=== PATIENT | male | born 1965 | race Caucasian/White ===

== ENCOUNTER 2024-04-10 19:15 | Inpatient (IN) | payer BC ==
--- NOTE | 2024-04-10 21:30 | ED ---
General Adult HPI - General Chief complaint: Alcohol Stated complaint: alcohol abuse Time Seen by Provider: 04/10/24 21:14 Source: patient Mode of arrival: ambulatory Limitations: no limitations - History of Present Illness Initial comments: Patient is a 58-year-old male past medical history of alcoholism presenting today for alcohol withdrawal. Patient states that he has been drinking steadily for last 20 years. Typically drinks a half a pint and 6 beers during the week and then during the weekend he is "unfiltered" and drinks what ever he wants. Patient states that today he drank a pint of "Surendra Beam" though sister states he is drinking 2 pints, last drink was at 630 this afternoon. Patient states that he is very anxious and feels like he needs to drink but is attempting not to because he has gotten to the point where he cannot live independently. Currently lives with his mother. States that he used to abuse heroin and cocaine 20 years ago when he lived in [place] but has not used those drugs since and denies any current illicit drug use. Does smoke approximately half a pack a day. States when he has tried to stop drinking in the past he has had severe hallucinations, denies history of withdrawal seizures. He currently denies nausea, vomiting, diaphoresis, chest pain, shortness of breath, abdominal pain, changes in vision, numbness, weakness, tactile disturbances or hallucinations. He states he ultimately wants to be admitted to the hospital to get sober and ultimately transition into [facility] for further recovery. Denies fevers. - Related Data Home Medications Medication Instructions Recorded Confirmed No Known Home Medications 04/11/24 04/11/24 Allergies Allergy/AdvReac Type Severity Reaction Status Date / Time No Known Allergies Allergy Verified 04/11/24 05:25 Review of Systems ROS Statement: Those systems with pertinent positive or pertinent negative responses have been documented in the HPI. ROS Other: All systems not noted in ROS Statement are negative. Past Medical History Past Medical History: No Reported History History of Any Multi-Drug Resistant Organisms: None Reported Past Surgical History: Adenoidectomy, Tonsillectomy Additional Past Surgical History / Comment(s): testicular surgery, tubes in ears, Past Psychological History: ADD/ADHD Smoking Status: Current every day smoker Past Alcohol Use History: Abuse, Daily, Heavy Past Drug Use History: Cocaine, Heroin - Past Family History Father Family Medical History: Cancer General Exam - General Exam Comments Initial Comments: PE: CONSTITUTIONAL: No apparent distress, well appearing, disheveled SKIN: Warm, dry, no jaundice, hives or petechiae EYES: Pupils are equally round, extraocular movements intact without nystagmus, clear conjunctiva, non-icteric sclera HENT: Normocephalic, atraumatic, mildly dry mucus membranes, oropharynx clear without exudates NECK: , Full range of motion, normal appearance PULMONARY: Clear to auscultation without wheezes, rhonchi, or rales, normal excursion, no accessory muscle use and no stridor CARDIOVASCULAR: Regular rate, rhythm, normal S1 and S2. No appreciated murmurs, rubs or gallops. Strong radial pulses with intact distal perfusion. No lower extremity edema GASTROINTESTINAL: Soft, active bowel sounds throughout, non-tender, non- distended, no palpable masses, no rebound or guarding. No hepatosplenomegaly MUSCULOSKELETAL: Extremities have no gross deformity, no edema, redness, or swelling. No calf swelling NEUROLOGIC:_a/o x 3, GCS 15, normal mentation and speech. Moves all extremities x 4 without motor or sensory deficit PSYCHIATRIC:_anxious, angry mood and affect, thought process is clear and linear , though at times tangential, particularly loquacious Limitations: no limitations Course Vital Signs 04/10/24 04/10/24 04/11/24 19:58 23:39 01:56 Temperature 98.4 F Pulse Rate 119 H 91 100 Respiratory 20 20 18 Rate Blood Pressure 142/72 112/76 118/74 O2 Sat by Pulse 95 94 L 95 Oximetry 04/11/24 04/11/24 04/11/24 04:37 06:10 07:07 Temperature Pulse Rate 83 77 78 Respiratory 16 13 13 Rate Blood Pressure 115/70 102/51 120/76 O2 Sat by Pulse 96 94 L 93 L Oximetry 04/11/24 07:08 Temperature Pulse Rate 86 Respiratory 6 L Rate Blood Pressure 120/76 O2 Sat by Pulse 94 L Oximetry Medical Decision Making - Medical Decision Making Was pt. sent in by a medical professional or institution (, PA, BAG SEWER, urgent care, hospital, or detention...) When possible be specific @ -No Did you speak to anyone other than the patient for history (EMS, parent, family, police, friend...)? What history was obtained from this source @ -No Did you review nursing and triage notes (agree or disagree)? Why? @ -I reviewed and agree with nursing and triage notes Were old charts reviewed (outside hosp., previous admission, EMS record, old EKG, old radiological studies, urgent care reports/EKG's, detention records)? Report findings @ -Medical records reviewed, no prior charts to review Differential Diagnosis (chest pain, altered mental status, abdominal pain women, abdominal pain men, vaginal bleeding, weakness, fever, dyspnea, syncope, headache, dizziness, GI bleed, back pain, seizure, CVA, palpatations, mental health, musculoskeletal)? @Differential diagnosis was broad over top considerations include alcohol intoxication, alcohol withdrawal, anxiety, depression, wernicke's encephalopthy, malnutrition, this is not all inclusive list EKG interpreted by me (3pts min.). @ -As above X-rays interpreted by me (1pt min.). @ -None done CT interpreted by me (1pt min.). @ -None done U/S interpreted by me (1pt. min.). @ -None done What testing was considered but not performed or refused? (CT, X-rays, U/S, labs)? Why? @ -None What meds were considered but not given or refused? Why? @ -None Did you discuss the management of the patient with other professionals (professionals i.e. , PA, BAG SEWER, lab, RT, psych nurse, health and social care teacher, artillery officer, teacher, chief marketing officer, family caseworker)? Give summary @ -No Was smoking cessation discussed for >3mins.? @ -No Was critical care preformed (if so, how long)? @ -No Were there social determinants of health that impacted care today? How? (Homelessness, low income, unemployed, alcoholism, drug addiction, transportation, low edu. Level, literacy, decrease access to med. care, fpc, rehab)? @ -No Was there de-escalation of care discussed even if they declined (Discuss DNR or withdrawal of care, Hospice)? @ -No What co-morbidities impacted this encounter? (DM, HTN, Smoking, COPD, CAD, Cancer, CVA, ARF, Chemo, Hep., AIDS, mental health diagnosis, sleep apnea, morbid obesity)? Alcoholism Was patient admitted / discharged? Hospital course, mention meds given and route, prescriptions, significant lab abnormalities, going to OR and other pertinent info. @Admission- Patient is a 58 y/o male with past medical history alcoholism presenting for concerns of alcohol withdrawal and wanting to stop drinking. Initially seen and assessed in the waiting room, he is anxious and has an angry affect, accompanied by his sister and his mother. He is not responding to any internal stimuli, denies hallucinations, has no seizure activity, has slight tremor with out stretched hands and mild tongue fasciculations, no diaphoresis, skin is warm and dry, tachycardia noted, skin is pink and well-perfused, abdomen soft and nontender, remainder of exam is unremarkable. He does feel strongly of alcohol. Suspect patient is still somewhat intoxicated he is a daily heavy drinker and I suspect he may be starting to go to alcohol withdrawal given his anxiety, tachycardia and fasciculations I will give him 5 mg of oral Ativan. Ordered basic labs, thiamine, folate, multivitamin IV fluids. Patient is unlikely to remain sober if discharged home and is requesting admission for alcohol withdrawal so that he can ultimately get to [facility] and remain sober. Anticipate admission. Labsreviewed. Grossly within normal limits. Blood alcohol 365, AST/ALT mildly elevated, consistent with patient's chronic alcohol abuse. otherwise abnormal values not concerning for acute pathology related to presenting complaint. I will hold off on further administration at this point as patient is sleeping comfortably at this time and does have a fairly elevated blood alcohol. Plan for admission for alcohol intoxication and anticipated alcohol withdrawal. [facility] protocol orders placed. Patient accepted for admission by Dr. Hernandez, [place]. Undiagnosed new problem with uncertain prognosis? @ -No Drug Therapy requiring intensive monitoring for toxicity (Heparin, Nitro, Insuli n, Cardizem)? @ -No Were any procedures done? @ -No Diagnosis/symptom? @Alcohol intoxication, alcohol withdrawal Acute, or Chronic, or Acute on Chronic? @Acute Uncomplicated (without systemic symptoms) or Complicated (systemic symptoms)? @Complicated Side effects of treatment? @ -No Exacerbation, Progression, or Severe Exacerbation? @ -No Poses a threat to life or bodily function? How? (Chest pain, [place], [place], pneumonia, PE, COPD, DKA, ARF, appy, cholecystitis, CVA, Diverticulitis, Homicidal, Suici lindsay, threat to staff... and all critical care pts) @Yes, if left untreated, alcohol withdrawal could lead to delirium tremens which are life-threatening - Lab Data Result diagrams: 04/16/24 03:07 04/16/24 03:07 Lab Results 04/10/24 04/10/24 04/10/24 Range/Units 22:00 22:00 22:00 WBC 6.9 (3.8-10.6) k/uL RBC 4.76 (4.30-5.90) m/uL Hgb 16.9 (13.0-17.5) gm/dL Hct 50.7 (39.0-53.0) % MCV 106.5 H (80.0-100.0) fL MCH 35.6 H (25.0-35.0) pg MCHC 33.4 (31.0-37.0) g/dL RDW 13.1 (11.5-15.5) % Plt Count 382 (150-450) k/uL MPV 6.4 Neutrophils % 52 % Lymphocytes % 37 % Monocytes % 7 % Eosinophils % 1 % Basophils % 1 % Neutrophils # 3.6 (1.3-7.7) k/uL Lymphocytes # 2.5 (1.0-4.8) k/uL Monocytes # 0.5 (0-1.0) k/uL Eosinophils # 0.1 (0-0.7) k/uL Basophils # 0.0 (0-0.2) k/uL Macrocytosis Moderate PT 11.4 (10.0-12.5) sec INR 1.1 (<1.2) Sodium (137-145) mmol/L Potassium (3.5-5.1) mmol/L Chloride (98-107) mmol/L Carbon Dioxide (22-30) mmol/L Anion Gap mmol/L BUN (9-20) mg/dL Creatinine (0.66-1.25) mg/dL Est GFR (CKD-EPI)AfAm (>60 ml/min/1.73 sqM) Est GFR (CKD-EPI)NonAf (>60 ml/min/1.73 sqM) Glucose (74-99) mg/dL Calcium (8.4-10.2) mg/dL Phosphorus (2.5-4.5) mg/dL Magnesium (1.6-2.3) mg/dL Total Bilirubin (0.2-1.3) mg/dL AST (17-59) U/L ALT (4-49) U/L Alkaline Phosphatase (38-126) U/L Total Protein (6.3-8.2) g/dL Albumin (3.5-5.0) g/dL Lipase (23-300) U/L Urine Opiates Screen Not Detected (NotDetected) Ur Oxycodone Screen Not Detected (NotDetected) Urine Methadone Screen Not Detected (NotDetected) Ur Barbiturates Screen Not Detected (NotDetected) U Tricyclic Antidepress Not Detected (NotDetected) Ur Phencyclidine Scrn Not Detected (NotDetected) Ur Amphetamines Screen Not Detected (NotDetected) U Methamphetamines Scrn Not Detected (NotDetected) U Benzodiazepines Scrn Not Detected (NotDetected) Urine Cocaine Screen Not Detected (NotDetected) U Marijuana (THC) Screen Not Detected (NotDetected) Serum Alcohol mg/dL 04/10/24 Range/Units 22:00 WBC (3.8-10.6) k/uL RBC (4.30-5.90) m/uL Hgb (13.0-17.5) gm/dL Hct (39.0-53.0) % MCV (80.0-100.0) fL MCH (25.0-35.0) pg MCHC (31.0-37.0) g/dL RDW (11.5-15.5) % Plt Count (150-450) k/uL MPV Neutrophils % % Lymphocytes % % Monocytes % % Eosinophils % % Basophils % % Neutrophils # (1.3-7.7) k/uL Lymphocytes # (1.0-4.8) k/uL Monocytes # (0-1.0) k/uL Eosinophils # (0-0.7) k/uL Basophils # (0-0.2) k/uL Macrocytosis PT (10.0-12.5) sec INR (<1.2) Sodium 143 (137-145) mmol/L Potassium 4.3 (3.5-5.1) mmol/L Chloride 107 (98-107) mmol/L Carbon Dioxide 26 (22-30) mmol/L Anion Gap 10 mmol/L BUN 21 H (9-20) mg/dL Creatinine 0.66 (0.66-1.25) mg/dL Est GFR (CKD-EPI)AfAm >90 (>60 ml/min/1.73 sqM) Est GFR (CKD-EPI)NonAf >90 (>60 ml/min/1.73 sqM) Glucose 75 (74-99) mg/dL Calcium 9.1 (8.4-10.2) mg/dL Phosphorus 4.1 (2.5-4.5) mg/dL Magnesium 2.0 (1.6-2.3) mg/dL Total Bilirubin 0.8 (0.2-1.3) mg/dL AST 79 H (17-59) U/L ALT 60 H (4-49) U/L Alkaline Phosphatase 67 (38-126) U/L Total Protein 7.2 (6.3-8.2) g/dL Albumin 4.9 (3.5-5.0) g/dL Lipase 267 (23-300) U/L Urine Opiates Screen (NotDetected) Ur Oxycodone Screen (NotDetected) Urine Methadone Screen (NotDetected) Ur Barbiturates Screen (NotDetected) U Tricyclic Antidepress (NotDetected) Ur Phencyclidine Scrn (NotDetected) Ur Amphetamines Screen (NotDetected) U Methamphetamines Scrn (NotDetected) U Benzodiazepines Scrn (NotDetected) Urine Cocaine Screen (NotDetected) U Marijuana (THC) Screen (NotDetected) Serum Alcohol 365 H* mg/dL Disposition Clinical Impression: Alcoholic intoxication, Alcohol withdrawal syndrome Disposition: ADMITTED IP TO THIS HOSP Condition: Good
[2024-04-10] MEDS: THIAMINE 100 MG/ML 2 ML VIAL IM STA (22:00)
[2024-04-10] MEDS: MULTIVITAMINS, THERA 1 EACH TAB PO STA (22:01)
[2024-04-10] MEDS: diazePAM 5 MG TAB PO STA (22:01)
[2024-04-10] MEDS: SODIUM CHLORIDE 0.9% 1,000 ML IV STA (22:02)
[2024-04-10 22:25] LABS: Basophils % (A) 1 %; Eosinophils # (A) 0.1 k/uL (0-0.7); Eosinophils % (A) 1 %; HCT 50.7 % (39.0-53.0); HGB 16.9 gm/dL (13.0-17.5); Lymphocytes # (A) 2.5 k/uL (1.0-4.8); Lymphocytes % (A) 37 %; MCH 35.6 pg (25.0-35.0); MCHC 33.4 g/dL (31.0-37.0); MCV 106.5 fL (80.0-100.0); Macrocytosis Moderate; Mean Platelet Volume 6.4; Monocytes # (A) 0.5 k/uL (0-1.0); Monocytes % (A) 7 %; Neutrophils # (A) 3.6 k/uL (1.3-7.7); Neutrophils % (A) 52 %; Platelet Count 382 k/uL (150-450); RBC 4.76 m/uL (4.30-5.90); RDW 13.1 % (11.5-15.5); WBC 6.9 k/uL (3.8-10.6)
[2024-04-10] MEDS: FOLIC ACID 1 MG TAB PO STA (22:25)
[2024-04-10 22:31] LABS: INR 1.1 (<1.2); Prothrombin Time 11.4 sec (10.0-12.5)
[2024-04-10 22:39] LABS: ALT 60 U/L (4-49); AST 79 U/L (17-59); African American GFR (CKD) >90 (>60 ml/min/1.73 sqM); Albumin 4.9 g/dL (3.5-5.0); Alkaline Phosphatase 67 U/L (38-126); Anion Gap 10 mmol/L; Blood Urea Nitrogen 21 mg/dL (9-20); Calcium 9.1 mg/dL (8.4-10.2); Carbon Dioxide 26 mmol/L (22-30); Chloride 107 mmol/L (98-107); Glucose 75 mg/dL (74-99); Lipase 267 U/L (23-300); Non-African American GFR(CKD) >90 (>60 ml/min/1.73 sqM); Phosphorus 4.1 mg/dL (2.5-4.5); Potassium 4.3 mmol/L (3.5-5.1); Sodium 143 mmol/L (137-145); Total Bilirubin 0.8 mg/dL (0.2-1.3); Total Protein 7.2 g/dL (6.3-8.2)
[2024-04-10 22:45] LABS: Amphetamine Screen,Urine Not Detected (NotDetected); Barbiturate Screen,Urine Not Detected (NotDetected); Benzodiazepines Screen,Urine Not Detected (NotDetected); Cocaine Screen,Urine Not Detected (NotDetected); Methadone Screen, Urine Not Detected (NotDetected); Opiate Screen,Urine Not Detected (NotDetected); Oxycodone Screen, Urine Not Detected (NotDetected); Phencyclidine Screen,Urine Not Detected (NotDetected); Tricyclic Antidepressant,Urine Not Detected (NotDetected); Urn Cannabinoid Scrn Not Detected (NotDetected)
[2024-04-10 23:27] LABS: Alcohol 365 mg/dL
[2024-04-10] MEDS ORDERED: MAG HYDROX/AL HYDROX/SIMETH 30 ML CUP PO PRN (23:30)
[2024-04-10] MEDS ORDERED: NALOXONE 0.4 MG/ML 1 ML VIAL IV PRN (23:30)
[2024-04-10] MEDS ORDERED: CALCIUM CARBONATE 500 MG CHEWABLE PO PRN (23:30)
[2024-04-10] MEDS ORDERED: LORazepam 0.5 MG TAB PO PRN (23:32)
[2024-04-10] MEDS ORDERED: LORazepam 1 MG TAB PO PRN ×2 (23:32)
[2024-04-11] MEDS: DEXTROSE 5%-0.45% NACL 1,000 ML IV SCH (00:01)
[2024-04-11] MEDS: ONDANSETRON 4 MG/2 ML VIAL IVP PRN (00:44)
[2024-04-11 03:10] LABS: Glucose,Whole Blood 119 mg/dL (70-110)
[2024-04-11] MEDS: ENOXAPARIN 40 MG/0.4 ML SYRINGE SQ SCH (09:16)
[2024-04-11] MEDS: FAMOTIDINE 20 MG TAB PO SCH (09:16)
[2024-04-11] MEDS: FOLIC ACID 1 MG TAB PO SCH (09:16)
[2024-04-11] MEDS: MULTIVITAMINS, THERA 1 EACH TAB PO SCH (09:16)
[2024-04-11] MEDS: THIAMINE 100 MG TAB PO SCH (09:16)
[2024-04-11] MEDS: ACETAMINOPHEN TAB 325 MG TAB PO PRN (09:19)
[2024-04-11] MEDS: LORazepam 1 MG TAB PO PRN (09:19)
[2024-04-11] MEDS: traZODone HCL 50 MG TAB PO STA (22:34)
--- NOTE | 2024-04-11 22:47 | P.HPIM ---
History of Present Illness H&P Date: 04/11/24 Chief Complaint: Alcohol intoxication Patient is a 58-year-old male with known history of nicotine addiction, alcohol abuse presents to ER for alcohol withdrawal symptoms. Patient states that his last drink was yesterday afternoon. Usually drinks about half a pint and 6 be ers during the week and then during the weekend is on filtered and drinks what ever he wants. Patient states that he is very anxious and feels like he needs to drink but he is wanted detox and live independently. Currently lives with his mother. Patient does have a history of heroin and cocaine use 20 years ago. Patient currently does smoke on a daily basis. Patient wants to stop drinking and detox and is willing to go to rehab program. Otherwise denied any nausea or vomiting. No chest pain or shortness of breath. No complaints abdominal pain or diarrhea. Denied any fever or chills. No recent illnesses. Denied any hallucinations.Laboratory data showed WBC 6.9 hemoglobin 16.9 and platelets 383 MCV 106.5 Sodium 143 potassium 4.3 chloride 107 bicarb is 26 BUN 21 and creatinine 0.66 and blood sugar 75. AST 79 ALT 16 alk phos 67 and serum alcohol level 365. Review of Systems Constitutional: Patient denies any fever or chills . Generalized weakness and shakiness. Abdomen: Patient denied nausea vomiting and diarrhea and abdominal pain. Cardiovascular: Patient denies any chest pain or short of breath no palpitations. Respiratory: patient denied any cough or sputum production. No shortness of breath Neurologic: Patient denied any numbness or tingling. no headache. Musculoskeletal: Patient denies any complaints of joint swelling or deformity. Skin: Negative Psychiatric: Negative Endocrine: No heat or cold intolerance. No recent weight gain. Genitourinary: No dysuria or hematuria. All other 14 point ROS negative except the above Past Medical History Past Medical History: No Reported History History of Any Multi-Drug Resistant Organisms: None Reported Past Surgical History: Adenoidectomy, Tonsillectomy Additional Past Surgical History / Comment(s): testicular surgery, tubes in ears Past Anesthesia/Blood Transfusion Reactions: No Reported Reaction Smoking Status: Current every day smoker - Past Family History Father Family Medical History: Cancer Medications and Allergies Home Medications Medication Instructions Recorded Confirmed Type No Known Home Medications 04/11/24 04/11/24 History Allergies Allergy/AdvReac Type Severity Reaction Status Date / Time No Known Allergies Allergy Verified 04/11/24 05:25 Physical Exam Vitals: Vital Signs Temp Pulse Pulse Resp BP BP Pulse Ox 04/11/24 07:39 98.4 F 77 20 147/69 96 04/11/24 07:07 78 13 120/76 93 L 04/11/24 06:10 77 13 102/51 94 L 04/11/24 04:37 83 16 115/70 96 04/11/24 01:56 100 18 118/74 95 04/10/24 23:39 91 20 112/76 94 L 04/10/24 19:58 98.4 F 119 H 20 142/72 95 Intake and Output 04/10/24 04/11/24 04/11/24 22:59 06:59 14:59 Other: Weight 65.771 kg 65.771 kg PHYSICAL EXAMINATION: Patient is lying in the bed, no acute distress, awake alert and oriented. Anxious and shaky. HEENT: Normocephalic. Neck is supple. Pupils reactive. Nostrils clear. Oral cavity is moist. Neck reveals no JVD, carotid bruits, or thyromegaly. CHEST EXAMINATION: Trachea is central. Symmetrical expansion. Lung medina clear to auscultation and percussion. CARDIAC: Normal S1, S2 with no gallops. No murmurs ABDOMEN: Soft. Bowel sounds normal. No organomegaly. No abdominal bruits. Extremities: reveal no edema. No clubbing or cyanosis Neurologically awake, alert, oriented x3 with well-coordinated movements. No fo vianey deficits noted Skin: No rash or skin lesions. Psychiatric: Coperative. Nonsuicidal, anxious. Musculoskeletal: No joint swelling or deformity. Normal range of motion. Results CBC & Chem 7: 04/10/24 22:00 04/10/24 22:00 Labs: Abnormal Lab Results - Last 24 Hours (Table) 04/10/24 04/10/24 04/11/24 Range/Units 22:00 22:00 03:08 MCV 106.5 H (80.0-100.0) fL MCH 35.6 H (25.0-35.0) pg BUN 21 H (9-20) mg/dL POC Glucose (mg/dL) 119 H (70-110) mg/dL AST 79 H (17-59) U/L ALT 60 H (4-49) U/L Serum Alcohol 365 H* mg/dL Thrombosis Risk Factor Assmnt - DVT/VTE Prophylaxis DVT/VTE Prophylaxis: Pharmacologic Prophylaxis ordered Assessment and Plan Assessment: Acute alcohol intoxication with level 365 on admission. Acute alcohol withdrawal symptoms Alcoholic hepatitis Macrocytosis secondary to alcohol abuse Alcohol use disorder GI and DVT prophylaxis. Patient will be continued on IV hydration with D5 half-normal saline. Continue with Ativan as per withdrawal protocol. Continue with GI and DVT prophylaxis with Pepcid and Lovenox subcu. Continue with multivitamins and thiamine. Follow-up closely. Seizure precautions and fall precautions. Time with Patient: Greater than 30
[2024-04-12] MEDS: LORazepam 1 MG TAB PO PRN (05:37)
[2024-04-12 09:07] LABS: BUN/Creat Ratio 25.67 Ratio (12.00-20.00); Blood Urea Nitrogen 15.4 mg/dL (9.0-27.0); Calcium 8.9 mg/dL (8.7-10.3); Carbon Dioxide 22.8 mmol/L (21.6-31.8); Chloride 102 mmol/L (96-109); Glucose 94 mg/dL (70-110); Sodium 137 mmol/L (135-145)
[2024-04-12] MEDS: LORazepam 2 MG/ML INJ IV PRN ×2 (14:18→17:56)
[2024-04-12] MEDS ORDERED: LORazepam 0.5 MG TAB PO PRN (16:20)
[2024-04-12] MEDS ORDERED: LORazepam 1 MG TAB PO PRN ×3 (16:20)
--- NOTE | 2024-04-12 17:11 | P.CNPUL ---
History of Present Illness Consult date: 04/12/24 Requesting physician: Sophie Rivas Reason for consult: other (ICU management) Chief complaint: Alcoholism History of present illness: This is a 58-year-old male patient with a history of ADHD, chronic and ongoing tobacco dependence, history of cocaine and heroin use in the past, heavy daily alcohol abuse who presented here on April 10, 2024 after drinking a pint of Surendra Mcclendon prior to his arrival. He typically drinks half a pint and 6 beers during the week then goes "unfiltered and drinks what ever he wants on the weekends. He lives with his mother. In the ER he stated like he felt he needed a drink but was trying not to to get where the point where he could live independently. Denies any recent drug use. His alcohol level on arrival was 365. He was placed in the CIWA protocol and admitted to the fifth floor. We are consulted today for possible ICU admission. His CIWA scale is up to 23. He was having shaking and restlessness trying to leave the floor, hallucinations. He had been given Ativan per protocol and Valium 5 mg IVP once prior to arrival. He is currently sitting up in bed. His mother is at the bedside. He is restless. He is cooperative currently. He is shaky. He is maintaining O2 saturations in the 90s on room air. He is hemodynamically stable. White count 6.9. Hemoglobin 16.9. Platelets 382. INR 1.1. Sodium 137. Potassium 4.0. Bicarb 23. BUN 15. Creatinine 0.6. Glucose 94. Urine drug screen was negative. AST 79. ALT 60. Lipase 267. He is on Lovenox for DVT prophylaxis. D5W with half-normal saline at 70 mL/h. Review of Systems REVIEW OF SYSTEMS: CONSTITUTIONAL: Positive for signs of alcohol withdrawal. Denies any recent significant weight loss or weight gain. EYES: Denies change in vision. EARS, NOSE, MOUTH, THROAT: Denies headaches, denies sore throat. CARDIOVASCULAR: Denies chest pain, palpitations or syncopal episodes. RESPIRATORY: Denies shortness of breath, cough, congestion or hemoptysis. GASTROINTESTINAL: Denies change in appetite, denies abdominal pain GENITOURINARY: Denies hematuria, denies infections. MUSKULOSKELETAL: Denies pain, denies swelling. INTEGUMENTARY: Denies rash, denies eczema. NEUROLOGICAL: Denies recent memory loss, no recent seizure activity. PSYCHIATRIC: Denies anxiety, denies depression. HEMATOLOGIC/LYMPHATIC: Denies anemia, denies enlarged lymph nodes. Past Medical History Past Medical History: No Reported History History of Any Multi-Drug Resistant Organisms: None Reported Past Surgical History: Adenoidectomy, Tonsillectomy Additional Past Surgical History / Comment(s): testicular surgery, tubes in ears Past Anesthesia/Blood Transfusion Reactions: No Reported Reaction Smoking Status: Current every day smoker - Past Family History Father Family Medical History: Cancer Medications and Allergies Home Medications Medication Instructions Recorded Confirmed Type No Known Home Medications 04/11/24 04/11/24 History Allergies Allergy/AdvReac Type Severity Reaction Status Date / Time No Known Allergies Allergy Verified 04/11/24 05:25 Physical Exam Vitals: Vital Signs Temp Pulse Resp BP Pulse Ox 04/12/24 13:15 98.2 F 98 16 112/84 95 04/12/24 07:05 97.7 F 63 18 132/67 97 04/12/24 01:39 97.3 F L 60 16 131/67 96 04/11/24 20:00 97.3 F L 67 16 144/66 97 Intake and Output 04/12/24 04/12/24 04/12/24 06:59 14:59 22:59 Intake Total 590 Balance 590 Intake: Oral 590 Other: # Voids 3 GENERAL EXAM: Alert, thin, anxious, shaky 58-year-old male, on room air. HEAD: Normocephalic. EYES: Normal reaction of pupils, equal size. NOSE: Clear with pink turbinates. THROAT: No erythema or exudates. NECK: No masses, no JVD. CHEST: No chest wall deformity. LUNGS: Equal air entry with no crackles, wheeze, rhonchi or dullness. CVS: S1 and S2 normal with no audible murmur, regular rhythm. ABDOMEN: No hepatosplenomegaly, normal bowel sounds, no guarding or rigidity. SPINE: No scoliosis or deformity SKIN: No rashes CENTRAL NERVOUS SYSTEM: No focal deficits, tone is normal in all 4 extremities. EXTREMITIES: There is no peripheral edema. No clubbing, no cyanosis. Peripheral pulses are intact. Results - Laboratory Findings CBC and BMP: 04/10/24 22:00 04/12/24 04:04 PT/INR, D-dimer PT 11.4 sec (10.0-12.5) 04/10/24 22:00 INR 1.1 (<1.2) 04/10/24 22:00 Abnormal lab findings: Abnormal Labs 04/10/24 04/10/24 04/11/24 22:00 22:00 03:08 MCV 106.5 H MCH 35.6 H Anion Gap BUN 21 H BUN/Creatinine Ratio POC Glucose (mg/dL) 119 H AST 79 H ALT 60 H Serum Alcohol 365 H* 04/12/24 04:04 MCV MCH Anion Gap 12.20 H BUN BUN/Creatinine Ratio 25.67 H POC Glucose (mg/dL) AST ALT Serum Alcohol Assessment and Plan Assessment: Acute alcohol intoxication on arrival 04/10/2024 with withdrawal delirium today 04/12/2024 History of alcoholism drinking approximately half a pint of liquor and 6 beers a day during the week and then goes 'unfiltered' drinking what ever he wants on the weekends Previous history of cocaine and heroin abuse Chronic and ongoing tobacco dependence of 40 years Plan: The patient was seen and evaluated Labs and medications reviewed Transfer the patient to the intensive care unit Initiate Precedex if needed Continue CIWA protocol with IV Ativan We will continue to follow and make further recommendations based on his clinical status I have personally seen and examined the patient, performed the documentation and the assessment and plan as written. Number of minutes spent on the visit: 20 Dictation was produced using [employer] dictation software. Please excuse any grammatical, word or spelling errors.
[2024-04-12] MEDS ORDERED: chlordiazePOXIDE 25 MG CAP PO SCH (18:00)
--- NOTE | 2024-04-12 18:32 | P.PN ---
Subjective Progress Note Date: 04/12/24 Patient is a 58-year-old male with known history of nicotine addiction, alcohol abuse presents to ER for alcohol withdrawal symptoms. Patient states that his last drink was yesterday afternoon. Usually drinks about half a pint and 6 beers during the week and then during the weekend is on filtered and drinks what ever he wants. Patient states that he is very anxious and feels like he needs to drink but he is wanted detox and live independently. Currently lives with his mother. Patient does have a history of heroin and cocaine use 20 years ago. Patient currently does smoke on a daily basis. Patient wants to stop drinking and detox and is willing to go to rehab program. Otherwise denied any nausea or vomiting. No chest pain or shortness of breath. No complaints abdominal pain or diarrhea. Denied any fever or chills. No recent illnesses. Denied any hallucinations.Laboratory data showed WBC 6.9 hemoglobin 16.9 and platelets 383 MCV 106.5 Sodium 143 potassium 4.3 chloride 107 bicarb is 26 BUN 21 and creatinine 0.66 and blood sugar 75. AST 79 ALT 16 alk phos 67 and serum alcohol level 365. 04/12/2024 Patient is seen in follow-up today continuing to have significant withdrawals and reports is seeing the TV on the floor although he knows it is up on the wall and also noticing that furniture is hanging up on the wall and having hallucinations. Patient's CIWA has been elevated and will also start Librium. Patient reports last drink was Thursday into Thursday and normally drinks 1 to 2 pints of liquor daily. Patient is agreeable and wants to go to rehab. Monitor closely with CIWA protocol and will adjust medications. Also have added Valium. Review of systems: Constitutional: No reports of fatigue, fever, or chills, reports hallucinating and seeing things that he knows are not present Cardiovascular: No reports of chest pain or palpitations Respiratory: No reports of shortness of breath or cough GI: reports of intermittent nausea, no vomiting, or diarrhea, eating a little more today : No reports of dysuria or retention Neurovascular: No reports of weakness or numbness All medications have been reviewed PHYSICAL EXAMINATION: Patient is sitting up in the chair, mildly anxious, restless, shaky, awake alert and oriented. Thin built, appears older than stated age HEENT: Normocephalic. Neck is supple. Pupils reactive. Nostrils clear. Oral cavity is moist. Neck reveals no JVD, carotid bruits, or thyromegaly. CHEST EXAMINATION: Trachea is central. Symmetrical expansion. Lung medina clear to auscultation and percussion. CARDIAC: Normal S1, S2 with no gallops. No murmurs, tachy ABDOMEN: Soft. Thin, bowel sounds normal. No organomegaly. No abdominal bruits. Extremities: reveal no edema. No clubbing or cyanosis Neurologically awake, alert, oriented x3 with well-coordinated movements. No focal deficits noted Skin: No rash or skin lesions. Psychiatric: Cooperative. Non-suicidal, extremely anxious. Musculoskeletal: No joint swelling or deformity. Normal range of motion. Assessment: Acute alcohol intoxication with level 365 on admission. Acute alcohol withdrawal symptoms including hallucinations, shakiness, restlessness, increased anxiety Alcoholic hepatitis secondary to continued ongoing alcohol abuse Macrocytosis secondary to alcohol abuse Alcohol use disorder Vaping GI prophylaxis DVT prophylaxis Full code Plan: Patient will be continued on IV hydration although is eating and drinking will follow-up with repeat labs and monitor closely. Patient CIWA scores are elevated and was continued on oral Ativan and received 2 mg today and is reporting some hallucinations along with continued anxiety and shakiness. Will add Valium and also started Librium taper. Consulted jersey knitter with concerns of possible delirium tremens and may need closer ICU monitoring with elevated CIWA scores Patient provided information for resources to inpatient rehab as patient is agreeable and wants to go to rehab Follow-up on repeat labs and continue to monitor closely Overall prognosis is guarded at this time The impression and plan of care has been dictated by Trina Means, Nurse Practitioner as directed. Dr. Richar MD I have performed a history and examination and MDM of this patient, discussed the same with the dictator, and agree with the dictator's assessment and plan as written ,documented as a scribe. Based on total visit time, I have performed more than 50% of the visit. Objective - Vital Signs Vital signs: Vital Signs Temp 97.7 F 04/12/24 07:05 Pulse 63 04/12/24 07:05 Resp 18 04/12/24 07:05 BP 132/67 04/12/24 07:05 Pulse Ox 97 04/12/24 07:05 FiO2 Intake & Output 04/11/24 04/12/24 04/12/24 18:59 06:59 18:59 Intake Total 840 590 Balance 840 590 Weight 65.771 kg Intake: Intake, IV Titration 840 Amount Dextrose 5%-0.45% NaCl 1, 840 000 ml @ 70 mls/hr IV . [id number] Rx#:[id number] Oral 590 Other: Voiding Method Toilet # Voids 2 3 - Labs CBC & Chem 7: 04/10/24 22:00 04/12/24 04:04 Labs: Abnormal Lab Results - Last 24 Hours (Table) 04/12/24 Range/Units 04:04 Anion Gap 12.20 H (4.00-12.00) mmol/L BUN/Creatinine Ratio 25.67 H (12.00-20.00) Ratio
[2024-04-12] MEDS: DEXMEDETOMIDINE/0.9% NACL(PMX) 400 MCG in EMPTY BAG 1 BAG IV SCH (18:56)
--- NOTE | 2024-04-12 20:27 | P.MHFACE ---
Face to Face Restrain/Seclus - Evaluation Patient's Immediate Situation: Endangers self safety, Endangers staff safety Patient's Reaction to the Intervention: Hostile Patient's Medical & Behavioral Condition: Awake, Agitated Patient's Medical & Behavioral Condition - Comment: The patient was seen at the bedside for evaluation of 4-point restraints. The patient who is admitted for alcohol withdrawal had reportedly gradually worsened despite being on precedex infusion and ativan IVP. The CIWA at the time of evaluation was 50 and the patient was very agitated, and attempting to bite and swing at staff and rip out his IVs. Need to Continue or Terminate Restraint or Seclusion: Continue Need to Continue or Terminate Restraint/Seclusion - Comment: Continue restraits for now with plans to discontinue as soon as the patient's CIWA comes down with sedation. Face to Face Eval of Restraint Date: 04/12/24 Face to Face Eval of Restraint Time: 20:05
[2024-04-12] MEDS: MIDAZOLAM HCL 50 MG in SODIUM CHLORIDE 0.9% 40 ML IV SCH (20:47)
--- NOTE | 2024-04-12 20:48 | XR ---
EXAMINATION TYPE: XR chest 1V portable DATE OF EXAM: 04/12/2024 8:37 PM CLINICAL INDICATION:Male, 58 years old with history of Tube placement; [facility] COMPARISON: None TECHNIQUE: XR chest portable Frontal view of the chest. FINDINGS: Lungs/Pleura: There is no evidence of pleural effusion, focal consolidation, or pneumothorax. Pulmonary vascularity: Unremarkable. Heart/mediastinum: Cardiomediastinal silhouette is unremarkable. Musculoskeletal: No acute osseous pathology. Other findings: None Lines/Tubes: Endotracheal tube with distal tip approximately 5.5 cm above the geeta. Nasogastric tube with its distal tip and side-port projecting under the diaphragm and projecting over the gastric lumen. IMPRESSION: 1. Interval placement of endotracheal and nasogastric tubes which are noted in appropriate position. 2. No acute cardiopulmonary disease/process. [facility], , 04/12/2024 8:45 PM
[2024-04-12 21:14] LABS: ABG Base Excess 1.4 mmol/L; ABG HCO3 24 mmol/L (21-25); ABG PCO2 30 mmHg (35-45); ABG TCO2 24 mmol/L (19-24); Allen Test Performed? Yes
[2024-04-12 21:18] LABS: ABG PO2 >420 mmHg (83-108)
[2024-04-12] MEDS: NICOTINE 14MG/24HR PATCH TRANSDERM SCH (23:32)
[2024-04-12] MEDS: CHLORHEXIDINE GLUCONATE 15 ML CUP MUCOUS MEM SCH (23:32)
[2024-04-13 00:48] LABS: Glucose,Whole Blood 141 mg/dL (70-110)
[2024-04-13 04:41] LABS: ABG Base Excess 2.3 mmol/L; ABG HCO3 24 mmol/L (21-25); ABG Oxygen Saturation 99.8 % (94-97); ABG PCO2 29 mmHg (35-45); ABG PH 7.53 (7.35-7.45); ABG PO2 135 mmHg (83-108); ABG TCO2 25 mmol/L (19-24); Allen Test Performed? Yes
[2024-04-13 06:04] LABS: Basophils % (A) 0 %; Eosinophils # (A) 0.1 k/uL (0-0.7); Eosinophils % (A) 1 %; HCT 47.5 % (39.0-53.0); HGB 15.7 gm/dL (13.0-17.5); Lymphocytes # (A) 1.2 k/uL (1.0-4.8); Lymphocytes % (A) 11 %; MCH 35.3 pg (25.0-35.0); MCHC 32.9 g/dL (31.0-37.0); MCV 107.2 fL (80.0-100.0); Macrocytosis Moderate; Mean Platelet Volume 7.1; Monocytes # (A) 0.5 k/uL (0-1.0); Monocytes % (A) 4 %; Neutrophils # (A) 9.4 k/uL (1.3-7.7); Neutrophils % (A) 83 %; Platelet Count 267 k/uL (150-450); RBC 4.43 m/uL (4.30-5.90); RDW 12.9 % (11.5-15.5); WBC 11.4 k/uL (3.8-10.6)
[2024-04-13 06:22] LABS: African American GFR (CKD) >90 (>60 ml/min/1.73 sqM); Anion Gap 4 mmol/L; Blood Urea Nitrogen 8 mg/dL (9-20); Calcium 9.5 mg/dL (8.4-10.2); Carbon Dioxide 22 mmol/L (22-30); Chloride 109 mmol/L (98-107); Glucose 119 mg/dL (74-99); Non-African American GFR(CKD) >90 (>60 ml/min/1.73 sqM); Potassium 3.1 mmol/L (3.5-5.1); Sodium 135 mmol/L (137-145)
[2024-04-13 06:55] LABS: Glucose,Whole Blood 133 mg/dL (70-110)
[2024-04-13] MEDS ORDERED: Potassium Replacement Protocol 1 EACH MISC MISCELLANE PRN (06:58)
[2024-04-13] MEDS: POTASSIUM BICARBONATE/CIT AC 20 MEQ TABLET.EFF NG-TUBE SCH ×2 (07:06→13:55)
--- NOTE | 2024-04-13 07:58 | XR ---
EXAMINATION TYPE: XR chest 1V portable DATE OF EXAM: 04/13/2024 4:34 AM COMPARISON: 04/12/2024 CLINICAL INDICATION: Male, 58 years old with history of Tube placement, , FINDINGS: Satisfactory ET and NG tubes. Heart borderline enlarged. Mild interstitial prominence of the chronic appearance. No consolidation or pleural effusion. IMPRESSION: Borderline cardiomegaly. No definite acute process. [facility], , 04/13/2024 7:56 AM
--- NOTE | 2024-04-13 09:13 | P.PN ---
Subjective Progress Note Date: 04/13/24 Patient is a 58-year-old male with known history of nicotine addiction, alcohol abuse presents to ER for alcohol withdrawal symptoms. Patient states that his last drink was yesterday afternoon. Usually drinks about half a pint and 6 beers during the week and then during the weekend is on filtered and drinks what ever he wants. Patient states that he is very anxious and feels like he needs to drink but he is wanted detox and live independently. Currently lives with his mother. Patient does have a history of heroin and cocaine use 20 years ago. Patient currently does smoke on a daily basis. Patient wants to stop drinking and detox and is willing to go to rehab program. Otherwise denied any nausea or vomiting. No chest pain or shortness of breath. No complaints abdominal pain or diarrhea. Denied any fever or chills. No recent illnesses. Denied any hallucinations.Laboratory data showed WBC 6.9 hemoglobin 16.9 and platelets 383 MCV 106.5 Sodium 143 potassium 4.3 chloride 107 bicarb is 26 BUN 21 and creatinine 0.66 and blood sugar 75. AST 79 ALT 16 alk phos 67 and serum alcohol level 365. 04/12/2024 Patient is seen in follow-up today continuing to have significant withdrawals and reports is seeing the TV on the floor although he knows it is up on the wall and also noticing that furniture is hanging up on the wall and having hallucinations. Patient's CIWA has been elevated and will also start Librium. Patient reports last drink was Thursday into Thursday and normally drinks 1 to 2 pints of liquor daily. Patient is agreeable and wants to go to rehab. Monitor closely with CIWA protocol and will adjust medications. Also have added Valium. 04/13/2024 Patient is seen in follow-up was sent to the ICU for increasing delirium and hallucinations with worsening CIWA with severe alcohol withdrawals. Patient started on Valium and also Librium although continued become agitated and per nursing documentation, patient was extremely aggressive to staff and pulling at IVs and resisting care, pulmonary paper cone drying machine operator was notified and patient was intubated and started on a Versed drip. Patient is continued on as needed CIWA although remains sedated on propofol as well. Potassium is slightly low at 3.1 today being replaced per protocol and will continue to monitor closely and wean sedation slowly to plan for extubation possibly in the next day or so. Review of systems: Unable to completely assess as patient is intubated and sedated with propofol and Versed drip All medications have been reviewed Active Medications Acetaminophen (Acetaminophen Tab 325 Mg Tab) 650 mg PO Q6HR PRN PRN Reason: Mild Pain or Fever > 100.5 Last Admin: 04/11/24 09:19 Dose: 650 mg Al Hydroxide/Mg Hydroxide (Mag Hydrox/Al Hydrox/Simeth 30 Ml Cup) 15 ml PO Q6HR PRN PRN Reason: Indigestion Calcium Carbonate/Glycine (Calcium Carbonate 500 Mg Chewable) 1,000 mg PO Q4HR PRN PRN Reason: Dyspepsia Chlorhexidine Gluconate (Chlorhexidine Gluconate 15 Ml Cup) 15 ml MUCOUS MEM BID [facility] Last Admin: 04/13/24 08:08 Dose: 15 ml Diazepam (Diazepam 5 Mg/Ml 2 Ml Inj) 5 mg IVP Q4HR PRN PRN Reason: CIWA 10 to 15 Enoxaparin Sodium (Enoxaparin 40 Mg/0.4 Ml Syringe) 40 mg SQ DAILY [facility] Last Admin: 04/13/24 08:08 Dose: 40 mg Famotidine (Famotidine 20 Mg Tab) 20 mg PO BID [facility] Last Admin: 04/13/24 08:08 Dose: 20 mg Folic Acid (Folic Acid 1 Mg Tab) 1 mg PO DAILY [facility] Last Admin: 04/13/24 08:08 Dose: 1 mg Dextrose/Sodium Chloride (Dextrose 5%-1/2ns Iv Soln) 1,000 mls @ 70 mls/hr IV .[id number] [facility] Last Admin: 04/13/24 08:09 Dose: 70 mls/hr Midazolam HCl 50 mg/ Sodium (Chloride) 50 mls @ 1 mls/hr IV .Q24H [facility]; Protocol Last Titration: 04/13/24 09:10 Dose: 6 mg/hr, 6 mls/hr Propofol 1,000 mg/ IV Solution 100 mls @ 5.919 mls/hr IV .[id number] [facility]; Protocol Last Titration: 04/13/24 08:15 Dose: 40 mcg/kg/min, 15.785 mls/hr Lorazepam (Lorazepam 2 Mg/Ml Inj) 2 mg IV Q6HR PRN PRN Reason: Seizures Last Admin: 04/12/24 14:18 Dose: 2 mg Lorazepam (Lorazepam 2 Mg/Ml Inj) 1 mg IV Q1HR PRN PRN Reason: CIWA 10 to 15 Lorazepam (Lorazepam 2 Mg/Ml Inj) 1 mg IV Q2HR PRN PRN Reason: CIWA 8 or 9 Miscellaneous Information (Potassium Replacement Protocol 1 Each Misc) 1 each MISCELLANE DAILY PRN; Protocol PRN Reason: Per Protocol Multivitamins (Multivitamins, Thera 1 Each Tab) 1 each PO DAILY [facility] Last Admin: 04/13/24 08:08 Dose: 1 each Naloxone HCl (Naloxone 0.4 Mg/Ml 1 Ml Vial) 0.2 mg IV Q2M PRN PRN Reason: Opioid Reversal Nicotine (Nicotine 14mg/24hr Patch) 1 patch TRANSDERM DAILY [facility] Last Admin: 04/13/24 08:08 Dose: 1 patch Ondansetron HCl (Ondansetron 4 Mg/2 Ml Vial) 4 mg IVP Q8HR PRN PRN Reason: Nausea And Vomiting Last Admin: 04/11/24 00:44 Dose: 4 mg Thiamine HCl (Thiamine 100 Mg Tab) 100 mg PO DAILY [facility] Last Admin: 04/13/24 08:08 Dose: 100 mg PHYSICAL EXAMINATION: Patient is intubated and sedated in the ICU with an FiO2 of 50% and PEEP of 5. Currently sedated. Thin built, appears older than stated age HEENT: Normocephalic. Neck is supple. Pupils reactive. Nostrils clear. Oral cavity is moist. Neck reveals no JVD, carotid bruits, or thyromegaly. CHEST EXAMINATION: Trachea is central. Symmetrical expansion. Lung medina clear to auscultation and percussion. CARDIAC: Normal S1, S2 with no gallops. No murmurs, tachy ABDOMEN: Soft. Thin, bowel sounds normal. No organomegaly. No abdominal bruits. Extremities: reveal no edema. No clubbing or cyanosis Neurologically awake, alert, oriented x3 with well-coordinated movements. No focal deficits noted Skin: No rash or skin lesions. Psychiatric: Unable to completely assess as patient is maintained on a Versed and propofol drip Musculoskeletal: No joint swelling or deformity. Normal range of motion. Assessment: Acute alcohol intoxication with level 365 on admission. Acute alcohol withdrawal symptoms including hallucinations, shakiness, restlessness, increased anxiety with increased agitation requiring mechanical ventilation Hypokalemia, being replaced Alcoholic hepatitis secondary to continued ongoing alcohol abuse Macrocytosis secondary to alcohol abuse Alcohol use disorder Vaping GI prophylaxis DVT prophylaxis Full code Plan: Patient will be continued in the ICU on mechanical ventilation with weaning trials once sedation and Versed is weaned Pulmonary paper cone drying machine operator following and will continue on CIWA protocol as well as withdrawal measures Potassium was 3.1 today being replaced per protocol and will follow-up on repeat labs Will discuss further with case management/social work once patient is successfu lly extubated and mentation is improved as patient does want a go to [place] for continued alcohol rehab Overall prognosis is guarded at this time The impression and plan of care has been dictated by Trina Means, Nurse Practitioner as directed. Dr. Richar MD I have performed a history and examination and MDM of this patient, discussed the same with the dictator, and agree with the dictator's assessment and plan as written ,documented as a scribe. Based on total visit time, I have performed more than 50% of the visit. Objective - Vital Signs Vital signs: Vital Signs Temp 97.9 F 04/13/24 08:00 Pulse 92 04/13/24 08:30 Resp 22 04/13/24 08:30 BP 98/69 04/13/24 08:30 Pulse Ox 100 04/13/24 08:30 FiO2 40 04/13/24 08:20 Intake & Output 04/12/24 04/13/24 04/13/24 18:59 06:59 18:59 Intake Total 994.051 295.606 Output Total 955 220 Balance 39.051 75.606 Weight 62 kg Intake: IV 770 210 Dextrose 5%-0.45% NaCl 1, 770 210 000 ml @ 70 mls/hr IV . [id number] [facility] Rx#:[id number] Intake, IV Titration 224.051 85.606 Amount Dexmedetomidine/0.9% NaCl 4.495 (Pmx) 400 mcg In Empty Bag 1 bag @ 0.2 MCG/KG/HR 3.289 mls/hr IV .Q24H [facility] Rx#:[id number] Midazolam HCl 50 mg In 52.799 45.650 Sodium Chloride 0.9% 40 ml @ 1 MG/HR 1 mls/hr IV .Q24H [facility] Rx#:[id number] propofoL 1,000 mg In 166.757 39.956 Empty Bag 1 bag @ 15 MCG/ KG/MIN 5.919 mls/hr IV . [id number] [facility] Rx#:[id number] Output: Urine 955 220 Other: Voiding Method Toilet Indwelling Catheter Indwelling Catheter Urinal Diaper Incontinent # Voids 1 1 - Labs CBC & Chem 7: 04/13/24 05:18 04/13/24 05:18 Labs: Abnormal Lab Results - Last 24 Hours (Table) 04/12/24 04/13/24 04/13/24 Range/Units 21:09 00:46 04:28 WBC (3.8-10.6) k/uL MCV (80.0-100.0) fL MCH (25.0-35.0) pg Neutrophils # (1.3-7.7) k/uL ABG pH 7.50 H 7.53 H (7.35-7.45) ABG pCO2 30 L 29 L (35-45) mmHg ABG pO2 >420 H 135 H (83-108) mmHg ABG Total CO2 25 H (19-24) mmol/L ABG O2 Saturation 100.0 H 99.8 H (94-97) % Sodium (137-145) mmol/L Potassium (3.5-5.1) mmol/L Chloride (98-107) mmol/L BUN (9-20) mg/dL Creatinine (0.66-1.25) mg/dL Glucose (74-99) mg/dL POC Glucose (mg/dL) 141 H (70-110) mg/dL 04/13/24 04/13/24 04/13/24 Range/Units 05:18 05:18 06:54 WBC 11.4 H (3.8-10.6) k/uL MCV 107.2 H (80.0-100.0) fL MCH 35.3 H (25.0-35.0) pg Neutrophils # 9.4 H (1.3-7.7) k/uL ABG pH (7.35-7.45) ABG pCO2 (35-45) mmHg ABG pO2 (83-108) mmHg ABG Total CO2 (19-24) mmol/L ABG O2 Saturation (94-97) % Sodium 135 L (137-145) mmol/L Potassium 3.1 L (3.5-5.1) mmol/L Chloride 109 H (98-107) mmol/L BUN 8 L (9-20) mg/dL Creatinine 0.62 L (0.66-1.25) mg/dL Glucose 119 H (74-99) mg/dL POC Glucose (mg/dL) 133 H (70-110) mg/dL
[2024-04-13 12:03] LABS: Glucose,Whole Blood 119 mg/dL (70-110)
--- NOTE | 2024-04-13 12:53 | P.PN ---
Subjective Progress Note Date: 04/13/24 Principal diagnosis: Acute alcohol withdrawal This is a 58-year-old male patient with a history of ADHD, chronic and ongoing tobacco dependence, history of cocaine and heroin use in the past, heavy daily alcohol abuse who presented here on April 10, 2024 after drinking a pint of Surendra Mcclendon prior to his arrival. He typically drinks half a pint and 6 beers during the week then goes "unfiltered and drinks what ever he wants on the weekends. He lives with his mother. In the ER he stated like he felt he needed a drink but was trying not to to get where the point where he could live independently. Denies any recent drug use. His alcohol level on arrival was 365. He was placed in the CIWA protocol and admitted to the fifth floor. We are consulted today for possible ICU admission. His CIWA scale is up to 23. He was having shaking and restlessness trying to leave the floor, hallucinations. He had been given Ativan per protocol and Valium 5 mg IVP once prior to arrival. He is currently sitting up in bed. His mother is at the bedside. He is restless. He is cooperative currently. He is shaky. He is maintaining O2 saturations in the 90s on room air. He is hemodynamically stable. White count 6.9. Hemoglobin 16.9. Platelets 382. INR 1.1. Sodium 137. Potassium 4.0. Bicarb 23. BUN 15. Creatinine 0.6. Glucose 94. Urine drug screen was negative. AST 79. ALT 60. Lipase 267. He is on Lovenox for DVT prophylaxis. D5W with half-normal saline at 70 mL/h. Patient was seen today on 04/13/2024, I saw this patient yesterday and I recommended transfer to ICU because of acute delirium tremens and alcohol withdrawal. Shortly after he arrived to the ICU, patient was extremely agitated, restless, required restraints and he was not responding to Ativan and Precedex. I was notified about this patient, and I recommended intubation and placement of the patient on propofol and on Versed. Patient is now intubated he is on assist-control rate of 22 tidal volume 500 FiO2 40% and PEEP of 5 ABG showed a pO2 of 135 pCO2 29 pH of 7.53. His rate was cut down to 18. Patient is fully sedated with propofol at 35 mg/kg/min and also Versed 6 mg/h. Will try to maintain patient on 1 medication instead of both, and will likely increase propofol and discontinue Versed. Chest x-ray showed no evidence of active disease his WBC count is 11.4 hemoglobin 5.7 basic metabolic profile is normal except for relatively low potassium 3.9, renal profile is normal patient will be started on enteral feeding, he is on already GI and DVT prophylaxis. Objective - Vital Signs Vital signs: Vital Signs Temp 98.0 F 04/13/24 12:00 Pulse 110 H 04/13/24 12:00 Resp 18 04/13/24 12:00 BP 122/77 04/13/24 12:00 Pulse Ox 99 04/13/24 12:00 FiO2 40 04/13/24 12:00 Intake & Output 04/12/24 04/13/24 04/13/24 18:59 06:59 18:59 Intake Total 994.051 652.984 Output Total 955 320 Balance 39.051 332.984 Weight 62 kg Intake: IV 770 420 Dextrose 5%-0.45% NaCl 1, 770 420 000 ml @ 70 mls/hr IV . [id number] [facility] Rx#:[id number] Intake, IV Titration 224.051 162.984 Amount Dexmedetomidine/0.9% NaCl 4.495 (Pmx) 400 mcg In Empty Bag 1 bag @ 0.2 MCG/KG/HR 3.289 mls/hr IV .Q24H [facility] Rx#:[id number] Midazolam HCl 50 mg In 52.799 61.400 Sodium Chloride 0.9% 40 ml @ 1 MG/HR 1 mls/hr IV .Q24H [facility] Rx#:[id number] propofoL 1,000 mg In 166.757 101.584 Empty Bag 1 bag @ 15 MCG/ KG/MIN 5.919 mls/hr IV . [id number] [facility] Rx#:[id number] Tube Feeding 40 Other 30 Output: Urine 955 320 Other: Voiding Method Toilet Indwelling Catheter Indwelling Catheter Urinal Diaper Incontinent # Voids 1 1 - Exam GENERAL EXAM: Revealed 58-year-old white male intubated mechanically ventilated sedated in no distress on Versed and propofol HEAD: Normocephalic. Atraumatic, orogastric tube and orotracheal tube are intact EYES: Normal reaction of pupils, equal size. NOSE: Clear with pink turbinates. THROAT: No erythema or exudates. NECK: No masses, no JVD. CHEST: No chest wall deformity. LUNGS: Equal air entry with no crackles, wheeze, rhonchi or dullness. CVS: S1 and S2 normal with no audible murmur, regular rhythm. ABDOMEN: No hepatosplenomegaly, normal bowel sounds, no guarding or rigidity. SKIN: No rashes CENTRAL NERVOUS SYSTEM: Not assessed patient is sedated, being ventilated EXTREMITIES: No clubbing edema or cyanosis - Labs CBC & Chem 7: 04/13/24 05:18 04/13/24 12:00 Labs: Abnormal Lab Results - Last 24 Hours (Table) 04/12/24 04/13/24 04/13/24 Range/Units 21:09 00:46 04:28 WBC (3.8-10.6) k/uL MCV (80.0-100.0) fL MCH (25.0-35.0) pg Neutrophils # (1.3-7.7) k/uL ABG pH 7.50 H 7.53 H (7.35-7.45) ABG pCO2 30 L 29 L (35-45) mmHg ABG pO2 >420 H 135 H (83-108) mmHg ABG Total CO2 25 H (19-24) mmol/L ABG O2 Saturation 100.0 H 99.8 H (94-97) % Sodium (137-145) mmol/L Potassium (3.5-5.1) mmol/L Chloride (98-107) mmol/L BUN (9-20) mg/dL Creatinine (0.66-1.25) mg/dL Glucose (74-99) mg/dL POC Glucose (mg/dL) 141 H (70-110) mg/dL 04/13/24 04/13/24 04/13/24 Range/Units 05:18 05:18 06:54 WBC 11.4 H (3.8-10.6) k/uL MCV 107.2 H (80.0-100.0) fL MCH 35.3 H (25.0-35.0) pg Neutrophils # 9.4 H (1.3-7.7) k/uL ABG pH (7.35-7.45) ABG pCO2 (35-45) mmHg ABG pO2 (83-108) mmHg ABG Total CO2 (19-24) mmol/L ABG O2 Saturation (94-97) % Sodium 135 L (137-145) mmol/L Potassium 3.1 L (3.5-5.1) mmol/L Chloride 109 H (98-107) mmol/L BUN 8 L (9-20) mg/dL Creatinine 0.62 L (0.66-1.25) mg/dL Glucose 119 H (74-99) mg/dL POC Glucose (mg/dL) 133 H (70-110) mg/dL 04/13/24 Range/Units 12:00 WBC (3.8-10.6) k/uL MCV (80.0-100.0) fL MCH (25.0-35.0) pg Neutrophils # (1.3-7.7) k/uL ABG pH (7.35-7.45) ABG pCO2 (35-45) mmHg ABG pO2 (83-108) mmHg ABG Total CO2 (19-24) mmol/L ABG O2 Saturation (94-97) % Sodium (137-145) mmol/L Potassium (3.5-5.1) mmol/L Chloride (98-107) mmol/L BUN (9-20) mg/dL Creatinine (0.66-1.25) mg/dL Glucose (74-99) mg/dL POC Glucose (mg/dL) 119 H (70-110) mg/dL Assessment and Plan Assessment: Impression: Acute alcohol withdrawal/delirium tremens requiring intubation mechanical ventilation because of extreme agitation, could not be controlled with Precedex and with Ativan. Acute alcohol intoxication on arrival 04/10/2024 with withdrawal delirium today 04/12/2024 History of alcoholism drinking approximately half a pint of liquor and 6 beers a day during the week and then goes 'unfiltered' drinking what ever he wants on the weekends Previous history of cocaine and heroin abuse Chronic and ongoing tobacco dependence of 40 years Recommendation: Continue ventilatory support Continue propofol and Versed prefer to use 1 or the other, hence Versed will be titrated down and propofol will be increased Continue CIWA protocol Continue GI and DVT prophylaxis Nutritional support/enteral feeding to be started today No plans to wean today Will address mental status and assessment on a daily basis. Patient is critically ill Critical care time is over 31 Time with Patient: Greater than 30
[2024-04-13 17:52] LABS: Glucose,Whole Blood 122 mg/dL (70-110)
[2024-04-13] MEDS: FAMOTIDINE 20 MG/2 ML VIAL IV SCH (19:55)
[2024-04-14 00:07] LABS: Glucose,Whole Blood 119 mg/dL (70-110)
[2024-04-14 03:16] LABS: Basophils % (A) 0 %; Eosinophils # (A) 0.1 k/uL (0-0.7); Eosinophils % (A) 1 %; HCT 44.6 % (39.0-53.0); HGB 15.1 gm/dL (13.0-17.5); Lymphocytes # (A) 1.5 k/uL (1.0-4.8); Lymphocytes % (A) 16 %; MCH 36.4 pg (25.0-35.0); MCHC 33.9 g/dL (31.0-37.0); MCV 107.5 fL (80.0-100.0); Macrocytosis Moderate; Mean Platelet Volume 7.6; Monocytes # (A) 0.5 k/uL (0-1.0); Monocytes % (A) 5 %; Neutrophils # (A) 7.1 k/uL (1.3-7.7); Neutrophils % (A) 75 %; Platelet Count 221 k/uL (150-450); RBC 4.15 m/uL (4.30-5.90); RDW 13.6 % (11.5-15.5); WBC 9.4 k/uL (3.8-10.6)
[2024-04-14 03:29] LABS: African American GFR (CKD) >90 (>60 ml/min/1.73 sqM); Anion Gap 0 mmol/L; Blood Urea Nitrogen 8 mg/dL (9-20); Calcium 9.2 mg/dL (8.4-10.2); Carbon Dioxide 25 mmol/L (22-30); Chloride 110 mmol/L (98-107); Glucose 110 mg/dL (74-99); Non-African American GFR(CKD) >90 (>60 ml/min/1.73 sqM); Potassium 3.4 mmol/L (3.5-5.1); Sodium 135 mmol/L (137-145)
[2024-04-14 05:09] LABS: ABG Base Excess 2.7 mmol/L; ABG HCO3 26 mmol/L (21-25); ABG Oxygen Saturation 97.6 % (94-97); ABG PCO2 37 mmHg (35-45); ABG PH 7.46 (7.35-7.45); ABG PO2 86 mmHg (83-108); ABG TCO2 28 mmol/L (19-24); Allen Test Performed? Yes
[2024-04-14] MEDS: POTASSIUM BICARBONATE/CIT AC 20 MEQ TABLET.EFF NG-TUBE SCH (05:35)
--- NOTE | 2024-04-14 05:52 | P.PN ---
Subjective Progress Note Date: 04/13/24 Patient is a 58-year-old male with known history of nicotine addiction, alcohol abuse presents to ER for alcohol withdrawal symptoms. Patient states that his last drink was yesterday afternoon. Usually drinks about half a pint and 6 beers during the week and then during the weekend is on filtered and drinks what ever he wants. Patient states that he is very anxious and feels like he needs to drink but he is wanted detox and live independently. Currently lives with his mother. Patient does have a history of heroin and cocaine use 20 years ago. Patient currently does smoke on a daily basis. Patient wants to stop drinking and detox and is willing to go to rehab program. Otherwise denied any nausea or vomiting. No chest pain or shortness of breath. No complaints abdominal pain or diarrhea. Denied any fever or chills. No recent illnesses. Denied any hallucinations.Laboratory data showed WBC 6.9 hemoglobin 16.9 and platelets 383 MCV 106.5 Sodium 143 potassium 4.3 chloride 107 bicarb is 26 BUN 21 and creatinine 0.66 and blood sugar 75. AST 79 ALT 16 alk phos 67 and serum alcohol level 365. 04/12/2024 Patient is seen in follow-up today continuing to have significant withdrawals and reports is seeing the TV on the floor although he knows it is up on the wall and also noticing that furniture is hanging up on the wall and having hallucinations. Patient's CIWA has been elevated and will also start Librium. Patient reports last drink was Thursday into Thursday and normally drinks 1 to 2 pints of liquor daily. Patient is agreeable and wants to go to rehab. Monitor closely with CIWA protocol and will adjust medications. Also have added Valium. 04/13/2024 Patient is seen in follow-up was sent to the ICU for increasing delirium and hallucinations with worsening CIWA with severe alcohol withdrawals. Patient started on Valium and also Librium although continued become agitated and per nursing documentation, patient was extremely aggressive to staff and pulling at IVs and resisting care, pulmonary railroad car repair supervisor was notified and patient was intubated and started on a Versed drip. Patient is continued on as needed CIWA although remains sedated on propofol as well. Potassium is slightly low at 3.1 today being replaced per protocol and will continue to monitor closely and wean sedation slowly to plan for extubation possibly in the next day or so. Review of systems: Unable to completely assess as patient is intubated and sedated with propofol and Versed drip All medications have been reviewed PHYSICAL EXAMINATION: Patient is intubated and sedated in the ICU with an FiO2 of 50% and PEEP of 5. Currently sedated. Thin built, appears older than stated age HEENT: Normocephalic. Neck is supple. Pupils reactive. Nostrils clear. Oral cavity is moist. Neck reveals no JVD, carotid bruits, or thyromegaly. CHEST EXAMINATION: Trachea is central. Symmetrical expansion. Lung medina clear to auscultation and percussion. CARDIAC: Normal S1, S2 with no gallops. No murmurs, tachy ABDOMEN: Soft. Thin, bowel sounds normal. No organomegaly. No abdominal bruits. Extremities: reveal no edema. No clubbing or cyanosis Neurologically awake, alert, oriented x3 with well-coordinated movements. No focal deficits noted Skin: No rash or skin lesions. Psychiatric: Unable to completely assess as patient is maintained on a Versed and propofol drip Musculoskeletal: No joint swelling or deformity. Normal range of motion. Assessment: Acute alcohol intoxication with level 365 on admission. Acute alcohol withdrawal symptoms including hallucinations, shakiness, r estlessness, increased anxiety with increased agitation requiring mechanical ventilation Hypokalemia, being replaced Alcoholic hepatitis secondary to continued ongoing alcohol abuse Macrocytosis secondary to alcohol abuse Alcohol use disorder Vaping GI prophylaxis DVT prophylaxis Full code Plan: Patient will be continued in the ICU on mechanical ventilation with weaning trials once sedation and Versed is weaned Pulmonary railroad car repair supervisor following and will continue on CIWA protocol as well as withdrawal measures Potassium was 3.1 today being replaced per protocol and will follow-up on repeat labs Will discuss further with case management/social work once patient is successfully extubated and mentation is improved as patient does want a go to [place] for continued alcohol rehab Overall prognosis is guarded at this time The impression and plan of care has been dictated by Trina Means, Nurse Practitioner as directed. Dr. Richar MD I have performed a history and examination and MDM of this patient, discussed the same with the dictator, and agree with the dictator's assessment and plan as written ,documented as a scribe. Based on total visit time, I have performed more than 50% of the visit. Objective - Vital Signs Vital signs: Vital Signs Temp 98.5 F 04/13/24 20:00 Pulse 88 04/14/24 00:00 Resp 18 04/14/24 00:00 BP 107/62 04/14/24 00:00 Pulse Ox 99 04/14/24 00:00 FiO2 40 04/14/24 05:02 Intake & Output 04/13/24 04/13/24 04/14/24 06:59 18:59 06:59 Intake Total 041.376 2997.792 743.6 Output Total 955 690 410 Balance 39.051 651.792 333.6 Weight 62 kg 62 kg Intake: IV 770 840 420 Dextrose 5%-0.45% NaCl 1, 770 840 420 000 ml @ 70 mls/hr IV . [id number] Rx#:[id number] Intake, IV Titration 224.051 271.792 133.6 Amount Dexmedetomidine/0.9% NaCl 4.495 (Pmx) 400 mcg In Empty Bag 1 bag @ 0.2 MCG/KG/HR 3.289 mls/hr IV .Q24H [facility] Rx#:[id number] Midazolam HCl 50 mg In 52.799 87.667 33.6 Sodium Chloride 0.9% 40 ml @ 1 MG/HR 1 mls/hr IV .Q24H [facility] Rx#:[id number] propofoL 1,000 mg In 166.757 184.125 100 Empty Bag 1 bag @ 15 MCG/ KG/MIN 5.919 mls/hr IV . [id number] [facility] Rx#:[id number] Tube Feeding 170 180 Other 60 10 Output: Urine 955 690 410 Other: Voiding Method Indwelling Catheter Indwelling Catheter Indwelling Catheter # Voids 1 - Labs CBC & Chem 7: 04/14/24 02:50 04/14/24 02:50 Labs: Abnormal Lab Results - Last 24 Hours (Table) 04/13/24 04/13/24 04/13/24 Range/Units 05:18 05:18 06:54 WBC 11.4 H (3.8-10.6) k/uL RBC (4.30-5.90) m/uL MCV 107.2 H (80.0-100.0) fL MCH 35.3 H (25.0-35.0) pg Neutrophils # 9.4 H (1.3-7.7) k/uL ABG pH (7.35-7.45) ABG HCO3 (21-25) mmol/L ABG Total CO2 (19-24) mmol/L ABG O2 Saturation (94-97) % Sodium 135 L (137-145) mmol/L Potassium 3.1 L (3.5-5.1) mmol/L Chloride 109 H (98-107) mmol/L BUN 8 L (9-20) mg/dL Creatinine 0.62 L (0.66-1.25) mg/dL Glucose 119 H (74-99) mg/dL POC Glucose (mg/dL) 133 H (70-110) mg/dL 04/13/24 04/13/24 04/14/24 Range/Units 12:00 17:50 00:06 WBC (3.8-10.6) k/uL RBC (4.30-5.90) m/uL MCV (80.0-100.0) fL MCH (25.0-35.0) pg Neutrophils # (1.3-7.7) k/uL ABG pH (7.35-7.45) ABG HCO3 (21-25) mmol/L ABG Total CO2 (19-24) mmol/L ABG O2 Saturation (94-97) % Sodium (137-145) mmol/L Potassium (3.5-5.1) mmol/L Chloride (98-107) mmol/L BUN (9-20) mg/dL Creatinine (0.66-1.25) mg/dL Glucose (74-99) mg/dL POC Glucose (mg/dL) 119 H 122 H 119 H (70-110) mg/dL 04/14/24 04/14/24 04/14/24 Range/Units 02:50 02:50 05:01 WBC (3.8-10.6) k/uL RBC 4.15 L (4.30-5.90) m/uL MCV 107.5 H (80.0-100.0) fL MCH 36.4 H (25.0-35.0) pg Neutrophils # (1.3-7.7) k/uL ABG pH 7.46 H (7.35-7.45) ABG HCO3 26 H (21-25) mmol/L ABG Total CO2 28 H (19-24) mmol/L ABG O2 Saturation 97.6 H (94-97) % Sodium 135 L (137-145) mmol/L Potassium 3.4 L (3.5-5.1) mmol/L Chloride 110 H (98-107) mmol/L BUN 8 L (9-20) mg/dL Creatinine (0.66-1.25) mg/dL Glucose 110 H (74-99) mg/dL POC Glucose (mg/dL) (70-110) mg/dL
[2024-04-14 06:13] LABS: Glucose,Whole Blood 139 mg/dL (70-110)
[2024-04-14] MEDS: LORazepam 2 MG/ML INJ IV PRN ×2 (08:08→10:02)
--- NOTE | 2024-04-14 08:50 | XR ---
EXAMINATION TYPE: XR chest 1V portable DATE OF EXAM: 04/14/2024 5:58 AM COMPARISON: 04/13/2024 CLINICAL INDICATION: Male, 58 years old with history of Tube placement, , FINDINGS: ET tube and NG tube are satisfactory. Heart upper limits of normal in size. No consolidation or sizab le pleural effusion. IMPRESSION: Stable exam. No acute process seen. [facility], , 04/14/2024 8:47 AM
[2024-04-14 10:05] LABS: Magnesium 1.9 mg/dL (1.6-2.3); Potassium 4.1 mmol/L (3.5-5.1)
[2024-04-14 11:51] LABS: Glucose,Whole Blood 142 mg/dL (70-110)
--- NOTE | 2024-04-14 14:03 | P.PN ---
Subjective Progress Note Date: 04/14/24 Patient is a 58-year-old male with known history of nicotine addiction, alcohol abuse presents to ER for alcohol withdrawal symptoms. Patient states that his last drink was yesterday afternoon. Usually drinks about half a pint and 6 beers during the week and then during the weekend is on filtered and drinks what ever he wants. Patient states that he is very anxious and feels like he needs to drink but he is wanted detox and live independently. Currently lives with his mother. Patient does have a history of heroin and cocaine use 20 years ago. Patient currently does smoke on a daily basis. Patient wants to stop drinking and detox and is willing to go to rehab program. Otherwise denied any nausea or vomiting. No chest pain or shortness of breath. No complaints abdominal pain or diarrhea. Denied any fever or chills. No recent illnesses. Denied any hallucinations.Laboratory data showed WBC 6.9 hemoglobin 16.9 and platelets 383 MCV 106.5 Sodium 143 potassium 4.3 chloride 107 bicarb is 26 BUN 21 and creatinine 0.66 and blood sugar 75. AST 79 ALT 16 alk phos 67 and serum alcohol level 365. 04/12/2024 Patient is seen in follow-up today continuing to have significant withdrawals and reports is seeing the TV on the floor although he knows it is up on the wall and also noticing that furniture is hanging up on the wall and having hallucinations. Patient's CIWA has been elevated and will also start Librium. Patient reports last drink was Thursday into Thursday and normally drinks 1 to 2 pints of liquor daily. Patient is agreeable and wants to go to rehab. Monitor closely with CIWA protocol and will adjust medications. Also have added Valium. 04/13/2024 Patient is seen in follow-up was sent to the ICU for increasing delirium and hallucinations with worsening CIWA with severe alcohol withdrawals. Patient started on Valium and also Librium although continued become agitated and per nursing documentation, patient was extremely aggressive to staff and pulling at IVs and resisting care, pulmonary kardex clerk was notified and patient was intubated and started on a Versed drip. Patient is continued on as needed CIWA although remains sedated on propofol as well. Potassium is slightly low at 3.1 today being replaced per protocol and will continue to monitor closely and wean sedation slowly to plan for extubation possibly in the next day or so. 04/14/2024 Patient is seen in follow-up today continues to be under mechanical ventilation sedation. Attempted weaning holidays although patient becomes extremely agitated and does not follow commands. Patient continues on Versed and propofol being resumed. No plans for extubation for the next few days per pulmonary kardex clerk. Otherwise chest x-ray showing no acute process and is maintained on FiO2 of 40% with a PEEP of 5 with good oxygen saturations noted. Review of systems: Unable to completely assess as patient is intubated and sedated with propofol and Versed drip All medications have been reviewed PHYSICAL EXAMINATION: Patient is intubated and sedated in the ICU with an FiO2 of 40% and PEEP of 5. Currently sedated. Thin built, appears older than stated age HEENT: Normocephalic. Neck is supple. Pupils reactive. Nostrils clear. Oral cavity is moist. Neck reveals no JVD, carotid bruits, or thyromegaly. CHEST EXAMINATION: Trachea is central. Symmetrical expansion. Lung medina clear to auscultation and percussion. CARDIAC: Normal S1, S2 with no gallops. No murmurs, tachy ABDOMEN: Soft. Thin, bowel sounds normal. No organomegaly. No abdominal bruits. Extremities: reveal no edema. No clubbing or cyanosis Neurologically awake, alert, oriented x3 with well-coordinated movements. No focal deficits noted Skin: No rash or skin lesions. Psychiatric: Unable to completely assess as patient is maintained on a Versed and propofol drip Musculoskeletal: No joint swelling or deformity. Normal range of motion. Assessment: Acute alcohol intoxication with level 365 on admission. Acute alcohol withdrawal symptoms including hallucinations, shakiness, restlessness, increased anxiety with increased agitation requiring mechanical ventilation Hypokalemia, being replaced Alcoholic hepatitis secondary to continued ongoing alcohol abuse Macrocytosis secondary to alcohol abuse Alcohol use disorder Vaping GI prophylaxis DVT prophylaxis Full code Plan: Patient will be continued in the ICU on mechanical ventilation with weaning trials once sedation and Versed is weaned. Attempted sedation weaning and patient became agitated and combative and not following commands. Per pulmonary kardex clerk no plans for extubation for the next few days. Pulmonary kardex clerk following and will continue on CIWA protocol as well as withdrawal measures Overall prognosis is guarded at this time The impression and plan of care has been dictated by Trina Means, Nurse Practitioner as directed. Dr. Richar MD I have performed a history and examination and MDM of this patient, discussed the same with the dictator, and agree with the dictator's assessment and plan as written ,documented as a scribe. Based on total visit time, I have performed more than 50% of the visit. Objective - Vital Signs Vital signs: Vital Signs Temp 98.8 F 04/14/24 04:00 Pulse 86 04/14/24 07:00 Resp 18 04/14/24 07:00 BP 101/61 04/14/24 07:00 Pulse Ox 98 04/14/24 07:00 FiO2 40 04/14/24 08:44 Intake & Output 04/13/24 04/14/24 04/14/24 18:59 06:59 18:59 Intake Total 6105.794 1303.283 115.75 Output Total 690 810 100 Balance 651.792 867.283 15.75 Weight 62 kg 63.7 kg Intake: IV 840 840 70 Dextrose 5%-0.45% NaCl 1, 840 840 70 000 ml @ 70 mls/hr IV . [id number] [facility] Rx#:[id number] Intake, IV Titration 271.792 267.283 5.75 Amount Midazolam HCl 50 mg In 87.667 67.283 5.75 Sodium Chloride 0.9% 40 ml @ 1 MG/HR 1 mls/hr IV .Q24H [facility] Rx#:[id number] propofoL 1,000 mg In 184.125 200 Empty Bag 1 bag @ 15 MCG/ KG/MIN 5.919 mls/hr IV . [id number] [facility] Rx#:[id number] Tube Feeding 170 350 40 Blood Product 190 Other 60 30 Output: Urine 690 810 100 Other: Voiding Method Indwelling Catheter Indwelling Catheter # Bowel Movements 0 0 - Labs CBC & Chem 7: 04/14/24 02:50 04/14/24 08:36 Labs: Abnormal Lab Results - Last 24 Hours (Table) 04/13/24 04/13/24 04/14/24 Range/Units 12:00 17:50 00:06 RBC (4.30-5.90) m/uL MCV (80.0-100.0) fL MCH (25.0-35.0) pg ABG pH (7.35-7.45) ABG HCO3 (21-25) mmol/L ABG Total CO2 (19-24) mmol/L ABG O2 Saturation (94-97) % Sodium (137-145) mmol/L Potassium (3.5-5.1) mmol/L Chloride (98-107) mmol/L BUN (9-20) mg/dL Glucose (74-99) mg/dL POC Glucose (mg/dL) 119 H 122 H 119 H (70-110) mg/dL 04/14/24 04/14/24 04/14/24 Range/Units 02:50 02:50 05:01 RBC 4.15 L (4.30-5.90) m/uL MCV 107.5 H (80.0-100.0) fL MCH 36.4 H (25.0-35.0) pg ABG pH 7.46 H (7.35-7.45) ABG HCO3 26 H (21-25) mmol/L ABG Total CO2 28 H (19-24) mmol/L ABG O2 Saturation 97.6 H (94-97) % Sodium 135 L (137-145) mmol/L Potassium 3.4 L (3.5-5.1) mmol/L Chloride 110 H (98-107) mmol/L BUN 8 L (9-20) mg/dL Glucose 110 H (74-99) mg/dL POC Glucose (mg/dL) (70-110) mg/dL 04/14/24 Range/Units 06:12 RBC (4.30-5.90) m/uL MCV (80.0-100.0) fL MCH (25.0-35.0) pg ABG pH (7.35-7.45) ABG HCO3 (21-25) mmol/L ABG Total CO2 (19-24) mmol/L ABG O2 Saturation (94-97) % Sodium (137-145) mmol/L Potassium (3.5-5.1) mmol/L Chloride (98-107) mmol/L BUN (9-20) mg/dL Glucose (74-99) mg/dL POC Glucose (mg/dL) 139 H (70-110) mg/dL
--- NOTE | 2024-04-14 15:00 | P.PN ---
Subjective Progress Note Date: 04/14/24 Principal diagnosis: Acute alcohol withdrawal This is a 58-year-old male patient with a history of ADHD, chronic and ongoing tobacco dependence, history of cocaine and heroin use in the past, heavy daily alcohol abuse who presented here on April 10, 2024 after drinking a pint of Surendra Mcclendon prior to his arrival. He typically drinks half a pint and 6 beers during the week then goes "unfiltered and drinks what ever he wants on the weekends. He lives with his mother. In the ER he stated like he felt he needed a drink but was trying not to to get where the point where he could live independently. Denies any recent drug use. His alcohol level on arrival was 365. He was placed in the CIWA protocol and admitted to the fifth floor. We are consulted today for possible ICU admission. His CIWA scale is up to 23. He was having shaking and restlessness trying to leave the floor, hallucinations. He had been given Ativan per protocol and Valium 5 mg IVP once prior to arrival. He is currently sitting up in bed. His mother is at the bedside. He is restless. He is cooperative currently. He is shaky. He is maintaining O2 saturations in the 90s on room air. He is hemodynamically stable. White count 6.9. Hemoglobin 16.9. Platelets 382. INR 1.1. Sodium 137. Potassium 4.0. Bicarb 23. BUN 15. Creatinine 0.6. Glucose 94. Urine drug screen was negative. AST 79. ALT 60. Lipase 267. He is on Lovenox for DVT prophylaxis. D5W with half-normal saline at 70 mL/h. Patient was seen today on 04/13/2024, I saw this patient yesterday and I recommended transfer to ICU because of acute delirium tremens and alcohol withdrawal. Shortly after he arrived to the ICU, patient was extremely agitated, restless, required restraints and he was not responding to Ativan and Precedex. I was notified about this patient, and I recommended intubation and placement of the patient on propofol and on Versed. Patient is now intubated he is on assist-control rate of 22 tidal volume 500 FiO2 40% and PEEP of 5 ABG showed a pO2 of 135 pCO2 29 pH of 7.53. His rate was cut down to 18. Patient is fully sedated with propofol at 35 mg/kg/min and also Versed 6 mg/h. Will try to maintain patient on 1 medication instead of both, and will likely increase propofol and discontinue Versed. Chest x-ray showed no evidence of active disease his WBC count is 11.4 hemoglobin 5.7 basic metabolic profile is normal except for relatively low potassium 3.9, renal profile is normal patient will be started on enteral feeding, he is on already GI and DVT prophylaxis. Seen today on 04/14/2024, patient remains in the ICU, intubated mechanically ventilated, assist-control rate 18 tidal volume 500 FiO2 40% PEEP of 5 ABG showed a pO2 of 86 pCO2 37 pH of 7.46, hence no changes were made in his ventilator settings. He is on propofol at 50 mcg/kg/min, however he seems to be quite agitated restless in spite of relatively good dose of propofol, hence I recommended adding Versed and titrate accordingly chest x-ray no evidence of active disease. Labs today are unremarkable including CBC and basic metabolic profile potassium is a bit low being addressed accordinglyRenal profile is normal. Patient remains on nutritional support, GI and DVT prophylaxis, and obviously is not quite ready to be weaned because of his extreme agitation related to alcohol withdrawal Objective - Vital Signs Vital signs: Vital Signs Temp 97.9 F 04/14/24 12:00 Pulse 78 04/14/24 13:00 Resp 18 04/14/24 13:00 BP 100/62 04/14/24 13:00 Pulse Ox 100 04/14/24 13:00 FiO2 40 04/14/24 13:00 Intake & Output 04/13/24 04/14/24 04/14/24 18:59 06:59 18:59 Intake Total 8222.310 1244.283 721.921 Output Total 690 810 625 Balance 651.792 867.283 96.921 Weight 62 kg 63.7 kg Intake: IV 840 840 350 Dextrose 5%-0.45% NaCl 1, 840 840 350 000 ml @ 70 mls/hr IV . [id number] [facility] Rx#:[id number] Intake, IV Titration 271.792 267.283 121.921 Amount Midazolam HCl 50 mg In 87.667 67.283 23.266 Sodium Chloride 0.9% 40 ml @ 1 MG/HR 1 mls/hr IV .Q24H [facility] Rx#:[id number] propofoL 1,000 mg In 184.125 200 98.655 Empty Bag 1 bag @ 15 MCG/ KG/MIN 5.919 mls/hr IV . [id number] [facility] Rx#:[id number] Tube Feeding 170 350 220 Blood Product 190 Other 60 30 30 Output: Urine 690 810 625 Other: Voiding Method Indwelling Catheter Indwelling Catheter Indwelling Catheter # Bowel Movements 0 0 - Exam GENERAL EXAM: Revealed 58-year-old white male intubated mechanically ventilated sedated in no distress on propofol however seems to be quite agitated with propofol alone without Versed HEAD: Normocephalic. Atraumatic, orogastric tube and orotracheal tube are inta ct EYES: Normal reaction of pupils, equal size. NOSE: Clear with pink turbinates. THROAT: No erythema or exudates. NECK: No masses, no JVD. CHEST: No chest wall deformity. LUNGS: Equal air entry with no crackles, wheeze, rhonchi or dullness. CVS: S1 and S2 normal with no audible murmur, regular rhythm. ABDOMEN: No hepatosplenomegaly, normal bowel sounds, no guarding or rigidity. SKIN: No rashes CENTRAL NERVOUS SYSTEM: Could not fully assess, quite agitated in spite of propofol at 50 mcg/kg/min EXTREMITIES: No clubbing edema or cyanosis - Labs CBC & Chem 7: 04/14/24 02:50 04/14/24 08:36 Labs: Abnormal Lab Results - Last 24 Hours (Table) 04/13/24 04/14/24 04/14/24 Range/Units 17:50 00:06 02:50 RBC 4.15 L (4.30-5.90) m/uL MCV 107.5 H (80.0-100.0) fL MCH 36.4 H (25.0-35.0) pg ABG pH (7.35-7.45) ABG HCO3 (21-25) mmol/L ABG Total CO2 (19-24) mmol/L ABG O2 Saturation (94-97) % Sodium (137-145) mmol/L Potassium (3.5-5.1) mmol/L Chloride (98-107) mmol/L BUN (9-20) mg/dL Glucose (74-99) mg/dL POC Glucose (mg/dL) 122 H 119 H (70-110) mg/dL 04/14/24 04/14/24 04/14/24 Range/Units 02:50 05:01 06:12 RBC (4.30-5.90) m/uL MCV (80.0-100.0) fL MCH (25.0-35.0) pg ABG pH 7.46 H (7.35-7.45) ABG HCO3 26 H (21-25) mmol/L ABG Total CO2 28 H (19-24) mmol/L ABG O2 Saturation 97.6 H (94-97) % Sodium 135 L (137-145) mmol/L Potassium 3.4 L (3.5-5.1) mmol/L Chloride 110 H (98-107) mmol/L BUN 8 L (9-20) mg/dL Glucose 110 H (74-99) mg/dL POC Glucose (mg/dL) 139 H (70-110) mg/dL 04/14/24 Range/Units 11:49 RBC (4.30-5.90) m/uL MCV (80.0-100.0) fL MCH (25.0-35.0) pg ABG pH (7.35-7.45) ABG HCO3 (21-25) mmol/L ABG Total CO2 (19-24) mmol/L ABG O2 Saturation (94-97) % Sodium (137-145) mmol/L Potassium (3.5-5.1) mmol/L Chloride (98-107) mmol/L BUN (9-20) mg/dL Glucose (74-99) mg/dL POC Glucose (mg/dL) 142 H (70-110) mg/dL Assessment and Plan Assessment: Impression: Acute alcohol withdrawal/delirium tremens requiring intubation mechanical ventilation because of extreme agitation, could not be controlled with Precedex and with Ativan. Acute alcohol intoxication on arrival 04/10/2024 with withdrawal delirium today 04/12/2024 History of alcoholism drinking approximately half a pint of liquor and 6 beers a day during the week and then goes 'unfiltered' drinking what ever he wants on the weekends Previous history of cocaine and heroin abuse Chronic and ongoing tobacco dependence of 40 years Recommendation: Continue ventilatory support, not ready for weaning will continue propofol and Versed for now Continue CIWA protocol Continue GI and DVT prophylaxis Nutritional support/enteral feeding, up to goal 34-week Patient is critically ill Critical care time is over 30 Time with Patient: Greater than 30
[2024-04-14 17:31] LABS: Glucose,Whole Blood 135 mg/dL (70-110)
[2024-04-15 00:03] LABS: Glucose,Whole Blood 111 mg/dL (70-110)
[2024-04-15 03:37] LABS: African American GFR (CKD) >90 (>60 ml/min/1.73 sqM); Anion Gap 2 mmol/L; Blood Urea Nitrogen 12 mg/dL (9-20); Calcium 8.6 mg/dL (8.4-10.2); Carbon Dioxide 25 mmol/L (22-30); Chloride 108 mmol/L (98-107); Glucose 110 mg/dL (74-99); Magnesium 1.9 mg/dL (1.6-2.3); Non-African American GFR(CKD) >90 (>60 ml/min/1.73 sqM); Potassium 3.6 mmol/L (3.5-5.1); Sodium 135 mmol/L (137-145)
[2024-04-15 04:09] LABS: HCT 42.5 % (39.0-53.0); HGB 14.1 gm/dL (13.0-17.5); MCH 36.1 pg (25.0-35.0); MCHC 33.1 g/dL (31.0-37.0); MCV 109.2 fL (80.0-100.0); Macrocytosis Marked; Mean Platelet Volume 7.5; Platelet Count 211 k/uL (150-450); RBC 3.89 m/uL (4.30-5.90); RDW 13.2 % (11.5-15.5); WBC 14.1 k/uL (3.8-10.6)
[2024-04-15] MEDS: POTASSIUM BICARBONATE/CIT AC 20 MEQ TABLET.EFF NG-TUBE SCH (05:14)
[2024-04-15 05:40] LABS: ABG Base Excess 3.5 mmol/L; ABG HCO3 28 mmol/L (21-25); ABG Oxygen Saturation 98.3 % (94-97); ABG PCO2 40 mmHg (35-45); ABG PH 7.45 (7.35-7.45); ABG PO2 94 mmHg (83-108); ABG TCO2 29 mmol/L (19-24); Allen Test Performed? Yes
[2024-04-15 05:58] LABS: Glucose,Whole Blood 126 mg/dL (70-110)
--- NOTE | 2024-04-15 07:53 | XR ---
EXAMINATION TYPE: XR chest 1V portable DATE OF EXAM: 04/15/2024 5:34 AM COMPARISON: 04/14/2024 CLINICAL INDICATION: Male, 58 years old with history of Tube placement, , FINDINGS: ET and NG tubes are satisfactory. Heart remains borderline enlarged. Scattered interstitial densitie s have increased in the interval. Some hazy silhouetting lateral left base appears increased. IMPRESSION: Correlate for developing pulmonary vascular congestion versus atypical pneumonia. Possible trace left effusion. [facility], , 04/15/2024 7:51 AM
[2024-04-15 12:11] LABS: Glucose,Whole Blood 113 mg/dL (70-110)
--- NOTE | 2024-04-15 15:16 | P.PN ---
Subjective Progress Note Date: 04/15/24 58-year-old male with known history of nicotine addiction, alcohol abuse presents to ER for alcohol withdrawal symptoms. Patient states that his last drink was yesterday afternoon. Usually drinks about half a pint and 6 beers during the week and then during the weekend is on filtered and drinks what ever he wants. Patient states that he is very anxious and feels like he needs to drink but he is wanted detox and live independently. Currently lives with his mother. Patient does have a history of heroin and cocaine use 20 years ago. Patient currently does smoke on a daily basis. Patient wants to stop drinking and detox and is willing to go to rehab program. Otherwise denied any nausea or vomiting. No chest pain or shortness of breath. No complaints abdominal pain or diarrhea. Denied any fever or chills. No recent illnesses. Denied any hallucinations.Laboratory data showed WBC 6.9 hemoglobin 16.9 and platelets 383 MCV 106.5 Sodium 143 potassium 4.3 chloride 107 bicarb is 26 BUN 21 and creatinine 0.66 and blood sugar 75. AST 79 ALT 16 alk phos 67 and serum alcohol level 365. Objective - Vital Signs Vital signs: Vital Signs Temp 98.6 F 04/15/24 08:00 Pulse 82 04/15/24 09:00 Resp 18 04/15/24 09:00 BP 133/67 04/15/24 09:00 Pulse Ox 98 04/15/24 09:00 FiO2 40 04/15/24 08:39 Intake & Output 04/14/24 04/15/24 04/15/24 18:59 06:59 18:59 Intake Total 3408.179 2985.984 310.8 Output Total 1055 670 150 Balance 640.299 5631.984 160.8 Weight 65.1 kg Intake: IV 840 840 145 Dextrose 5%-0.45% NaCl 1, 840 840 145 000 ml @ 70 mls/hr IV . [id number] Rx#:[id number] Intake, IV Titration 228.607 240.984 25.8 Amount Midazolam HCl 50 mg In 45.766 59.1 25.8 Sodium Chloride 0.9% 40 ml @ 1 MG/HR 1 mls/hr IV .Q24H [facility] Rx#:[id number] propofoL 1,000 mg In 182.841 181.884 Empty Bag 1 bag @ 15 MCG/ KG/MIN 5.919 mls/hr IV . [id number] [facility] Rx#:[id number] Tube Feeding 575 660 110 Other 90 90 30 Output: Urine 1055 670 150 Other: Voiding Method Indwelling Catheter Indwelling Catheter # Bowel Movements 0 - Exam Patient is intubated and sedated in the ICU with an FiO2 of 50% and PEEP of 5. Currently sedated. Thin built, appears older than stated age HEENT: Normocephalic. Neck is supple. Pupils reactive. Nostrils clear. Oral cavity is moist. Neck reveals no JVD, carotid bruits, or thyromegaly. CHEST EXAMINATION: Trachea is central. Symmetrical expansion. Lung medina clear to auscultation and percussion. CARDIAC: Normal S1, S2 with no gallops. No murmurs, tachy ABDOMEN: Soft. Thin, bowel sounds normal. No organomegaly. No abdominal bruits. Extremities: reveal no edema. No clubbing or cyanosis Neurologically awake, alert, oriented x3 with well-coordinated movements. No focal deficits noted Skin: No rash or skin lesions. Psychiatric: Unable to completely assess as patient is maintained on a Versed and propofol drip Musculoskeletal: No joint swelling or deformity. Normal range of motion. - Labs CBC & Chem 7: 04/15/24 02:41 04/15/24 12:35 Labs: Abnormal Lab Results - Last 24 Hours (Table) 04/14/24 04/14/24 04/15/24 Range/Units 11:49 17:29 00:02 WBC (3.8-10.6) k/uL RBC (4.30-5.90) m/uL MCV (80.0-100.0) fL MCH (25.0-35.0) pg Macrocytosis ABG HCO3 (21-25) mmol/L ABG Total CO2 (19-24) mmol/L ABG O2 Saturation (94-97) % Sodium (137-145) mmol/L Chloride (98-107) mmol/L Creatinine (0.66-1.25) mg/dL Glucose (74-99) mg/dL POC Glucose (mg/dL) 142 H 135 H 111 H (70-110) mg/dL 04/15/24 04/15/24 04/15/24 Range/Units 02:41 02:41 05:39 WBC 14.1 H (3.8-10.6) k/uL RBC 3.89 L (4.30-5.90) m/uL MCV 109.2 H (80.0-100.0) fL MCH 36.1 H (25.0-35.0) pg Macrocytosis Marked A ABG HCO3 28 H (21-25) mmol/L ABG Total CO2 29 H (19-24) mmol/L ABG O2 Saturation 98.3 H (94-97) % Sodium 135 L (137-145) mmol/L Chloride 108 H (98-107) mmol/L Creatinine 0.60 L (0.66-1.25) mg/dL Glucose 110 H (74-99) mg/dL POC Glucose (mg/dL) (70-110) mg/dL 04/15/24 Range/Units 05:56 WBC (3.8-10.6) k/uL RBC (4.30-5.90) m/uL MCV (80.0-100.0) fL MCH (25.0-35.0) pg Macrocytosis ABG HCO3 (21-25) mmol/L ABG Total CO2 (19-24) mmol/L ABG O2 Saturation (94-97) % Sodium (137-145) mmol/L Chloride (98-107) mmol/L Creatinine (0.66-1.25) mg/dL Glucose (74-99) mg/dL POC Glucose (mg/dL) 126 H (70-110) mg/dL Assessment and Plan Assessment: Acute alcohol intoxication with level 365 on admission. Acute alcohol withdrawal symptoms including hallucinations, shakiness, restlessness, increased anxiety with increased agitation requiring mechanical ventilation Hypokalemia, being replaced Alcoholic hepatitis secondary to continued ongoing alcohol abuse Macrocytosis secondary to alcohol abuse Alcohol use disorder Vaping GI prophylaxis DVT prophylaxis Full code Plan: Patient will be continued in the ICU on mechanical ventilation with weaning trials once sedation and Versed is weaned Pulmonary hospice bereavement coordinator following and will continue on CIWA protocol as well as withdrawal measures Potassium was 3.1 today being replaced per protocol and will follow-up on repeat labs Will discuss further with case management/social work once patient is successfully extubated and mentation is improved as patient does want a go to [facility] for continued alcohol rehab
--- NOTE | 2024-04-15 16:34 | P.PN ---
Subjective Progress Note Date: 04/15/24 Principal diagnosis: Acute alcohol withdrawal This is a 58-year-old male patient with a history of ADHD, chronic and ongoing tobacco dependence, history of cocaine and heroin use in the past, heavy daily alcohol abuse who presented here on April 10, 2024 after drinking a pint of Surendra Mcclendon prior to his arrival. He typically drinks half a pint and 6 beers during the week then goes "unfiltered and drinks what ever he wants on the weekends. He lives with his mother. In the ER he stated like he felt he needed a drink but was trying not to to get where the point where he could live independently. Denies any recent drug use. His alcohol level on arrival was 365. He was placed in the CIWA protocol and admitted to the fifth floor. We are consulted today for possible ICU admission. His CIWA scale is up to 23. He was having shaking and restlessness trying to leave the floor, hallucinations. He had been given Ativan per protocol and Valium 5 mg IVP once prior to arrival. He is currently sitting up in bed. His mother is at the bedside. He is restless. He is cooperative currently. He is shaky. He is maintaining O2 saturations in the 90s on room air. He is hemodynamically stable. White count 6.9. Hemoglobin 16.9. Platelets 382. INR 1.1. Sodium 137. Potassium 4.0. Bicarb 23. BUN 15. Creatinine 0.6. Glucose 94. Urine drug screen was negative. AST 79. ALT 60. Lipase 267. He is on Lovenox for DVT prophylaxis. D5W with half-normal saline at 70 mL/h. Patient was seen today on 04/13/2024, I saw this patient yesterday and I recommended transfer to ICU because of acute delirium tremens and alcohol withdrawal. Shortly after he arrived to the ICU, patient was extremely agitated, restless, required restraints and he was not responding to Ativan and Precedex. I was notified about this patient, and I recommended intubation and placement of the patient on propofol and on Versed. Patient is now intubated he is on assist-control rate of 22 tidal volume 500 FiO2 40% and PEEP of 5 ABG showed a pO2 of 135 pCO2 29 pH of 7.53. His rate was cut down to 18. Patient is fully sedated with propofol at 35 mg/kg/min and also Versed 6 mg/h. Will try to maintain patient on 1 medication instead of both, and will likely increase propofol and discontinue Versed. Chest x-ray showed no evidence of active disease his WBC count is 11.4 hemoglobin 5.7 basic metabolic profile is normal except for relatively low potassium 3.9, renal profile is normal patient will be started on enteral feeding, he is on already GI and DVT prophylaxis. Seen today on 04/14/2024, patient remains in the ICU, intubated mechanically ventilated, assist-control rate 18 tidal volume 500 FiO2 40% PEEP of 5 ABG showed a pO2 of 86 pCO2 37 pH of 7.46, hence no changes were made in his ventilator settings. He is on propofol at 50 mcg/kg/min, however he seems to be quite agitated restless in spite of relatively good dose of propofol, hence I recommended adding Versed and titrate accordingly chest x-ray no evidence of active disease. Labs today are unremarkable including CBC and basic metabolic profile potassium is a bit low being addressed accordinglyRenal profile is normal. Patient remains on nutritional support, GI and DVT prophylaxis, and obviously is not quite ready to be weaned because of his extreme agitation related to alcohol withdrawal Patient was seen today on ill 04/15/2024, remains in the ICU intubated, mechanically ventilated, on assist-control rate of 18 tidal volume 500 FiO2 40% and PEEP of 5 she showed a pO2 of 94 pCO2 4 0 pH of 7.45 on D5 4 5 at 75 cc/h on Versed 6 mg/h on propofol 50 mcg/kg/min vital HP 55/55 continues to have extreme agitations on lower doses of propofol and Versed, hence I have no plans to wean and extubate at this point yet. Chest x-ray continues to show no evidence of infiltrate, WBC count is 14.1 hemoglobin is 14.1 electrolytes are normal BUN is 12 creatinine 0.60 Objective - Vital Signs Vital signs: Vital Signs Temp 99.4 F 04/15/24 12:00 Pulse 101 H 04/15/24 15:00 Resp 18 04/15/24 15:00 BP 106/60 04/15/24 15:00 Pulse Ox 98 04/15/24 15:00 FiO2 40 04/15/24 15:38 Intake & Output 12/05/24 12/06/24 12/06/24 18:59 06:59 18:59 Intake Total 2277.242 7261.984 1373.083 Output Total 1055 670 965 Balance 249.995 2937.984 408.083 Weight 65.1 kg 65.1 kg Intake: IV 840 840 670 Dextrose 5%-0.45% NaCl 1, 840 840 670 000 ml @ 70 mls/hr IV . [id number] [facility] Rx#:[id number] Intake, IV Titration 228.607 240.984 148.083 Amount Midazolam HCl 50 mg In 45.766 59.1 48.083 Sodium Chloride 0.9% 40 ml @ 1 MG/HR 1 mls/hr IV .Q24H [facility] Rx#:[id number] propofoL 1,000 mg In 182.841 181.884 100 Empty Bag 1 bag @ 15 MCG/ KG/MIN 5.919 mls/hr IV . [id number] [facility] Rx#:[id number] Tube Feeding 575 660 495 Other 90 90 60 Output: Urine 1055 670 965 Other: Voiding Method Indwelling Catheter Indwelling Catheter Indwelling Catheter # Bowel Movements 0 - Exam GENERAL EXAM: Revealed 58-year-old white male intubated mechanically ventilated sedated in no distress HEAD: Normocephalic. Atraumatic, orogastric tube and orotracheal tube are intact EYES: Normal reaction of pupils, equal size. NOSE: Clear with pink turbinates. THROAT: No erythema or exudates. NECK: No masses, no JVD. CHEST: No chest wall deformity. LUNGS: Equal air entry with no crackles, wheeze, rhonchi or dullness. CVS: S1 and S2 normal with no audible murmur, regular rhythm. ABDOMEN: No hepatosplenomegaly, normal bowel sounds, no guarding or rigidity. SKIN: No rashes CENTRAL NERVOUS SYSTEM: Could not assess fully sedated with propofol and Versed EXTREMITIES: No clubbing edema or cyanosis - Labs CBC & Chem 7: 04/15/24 02:41 04/15/24 12:35 Labs: Abnormal Lab Results - Last 24 Hours (Table) 04/14/24 04/15/24 04/15/24 Range/Units 17:29 00:02 02:41 WBC 14.1 H (3.8-10.6) k/uL RBC 3.89 L (4.30-5.90) m/uL MCV 109.2 H (80.0-100.0) fL MCH 36.1 H (25.0-35.0) pg Macrocytosis Marked A ABG HCO3 (21-25) mmol/L ABG Total CO2 (19-24) mmol/L ABG O2 Saturation (94-97) % Sodium (137-145) mmol/L Chloride (98-107) mmol/L Creatinine (0.66-1.25) mg/dL Glucose (74-99) mg/dL POC Glucose (mg/dL) 135 H 111 H (70-110) mg/dL 04/15/24 04/15/24 04/15/24 Range/Units 02:41 05:39 05:56 WBC (3.8-10.6) k/uL RBC (4.30-5.90) m/uL MCV (80.0-100.0) fL MCH (25.0-35.0) pg Macrocytosis ABG HCO3 28 H (21-25) mmol/L ABG Total CO2 29 H (19-24) mmol/L ABG O2 Saturation 98.3 H (94-97) % Sodium 135 L (137-145) mmol/L Chloride 108 H (98-107) mmol/L Creatinine 0.60 L (0.66-1.25) mg/dL Glucose 110 H (74-99) mg/dL POC Glucose (mg/dL) 126 H (70-110) mg/dL 04/15/24 Range/Units 12:10 WBC (3.8-10.6) k/uL RBC (4.30-5.90) m/uL MCV (80.0-100.0) fL MCH (25.0-35.0) pg Macrocytosis ABG HCO3 (21-25) mmol/L ABG Total CO2 (19-24) mmol/L ABG O2 Saturation (94-97) % Sodium (137-145) mmol/L Chloride (98-107) mmol/L Creatinine (0.66-1.25) mg/dL Glucose (74-99) mg/dL POC Glucose (mg/dL) 113 H (70-110) mg/dL Assessment and Plan Assessment: Impression: Acute alcohol withdrawal/delirium tremens requiring intubation mechanical ventilation because of extreme agitation, could not be controlled with Precedex and with Ativan. Acute alcohol intoxication on arrival 04/10/2024 with withdrawal delirium today 04/12/2024 History of alcoholism drinking approximately half a pint of liquor and 6 beers a day during the week and then goes 'unfiltered' drinking what ever he wants on the weekends Previous history of cocaine and heroin abuse Chronic and ongoing tobacco dependence of 40 years Recommendation: Continue ventilatory support Continue propofol and Versed Continue CIWA protocol Continue GI and DVT prophylaxis Nutritional support/enteral feeding, up to goal Ready for weaning Patient is critically ill Critical care time is over 30 Time with Patient: Greater than 30
[2024-04-15 18:14] LABS: Glucose,Whole Blood 142 mg/dL (70-110)
[2024-04-15 23:55] LABS: Glucose,Whole Blood 141 mg/dL (70-110)
[2024-04-16 03:35] LABS: HCT 38.9 % (39.0-53.0); HGB 13.2 gm/dL (13.0-17.5); MCH 36.5 pg (25.0-35.0); MCHC 33.9 g/dL (31.0-37.0); MCV 107.6 fL (80.0-100.0); Macrocytosis Moderate; Platelet Count 223 k/uL (150-450); RBC 3.61 m/uL (4.30-5.90); RDW 13.5 % (11.5-15.5); WBC 12.1 k/uL (3.8-10.6)
[2024-04-16 03:49] LABS: African American GFR (CKD) >90 (>60 ml/min/1.73 sqM); Anion Gap 2 mmol/L; Blood Urea Nitrogen 14 mg/dL (9-20); Calcium 8.6 mg/dL (8.4-10.2); Carbon Dioxide 25 mmol/L (22-30); Chloride 108 mmol/L (98-107); Glucose 117 mg/dL (74-99); Non-African American GFR(CKD) >90 (>60 ml/min/1.73 sqM); Potassium 3.8 mmol/L (3.5-5.1); Sodium 135 mmol/L (137-145)
[2024-04-16] MEDS: POTASSIUM BICARBONATE/CIT AC 20 MEQ TABLET.EFF NG-TUBE SCH (05:24)
[2024-04-16 05:33] LABS: ABG Base Excess 3.8 mmol/L; ABG HCO3 28 mmol/L (21-25); ABG Oxygen Saturation 97.1 % (94-97); ABG PCO2 39 mmHg (35-45); ABG PH 7.46 (7.35-7.45); ABG PO2 79 mmHg (83-108); ABG TCO2 29 mmol/L (19-24); Allen Test Performed? Yes
[2024-04-16 06:05] LABS: Glucose,Whole Blood 161 mg/dL (70-110)
--- NOTE | 2024-04-16 06:53 | XR ---
EXAMINATION TYPE: XR chest 1V portable DATE OF EXAM: 04/16/2024 COMPARISON: 04/15/2024 CLINICAL INDICATION: Male, 58 years old with history of vent; TECHNIQUE: Single frontal view of the chest is obtained. FINDINGS: ET tube is 6.2 cm above the geeta. There is an NG tube in stomach. There is mild stable interstitial opacity in the lung bases which could reflect an acute process or c hronic interstitial scarring or fibrosis. There is no pneumothorax. The upper lung medina are clear. The osseous structures are intact. IMPRESSION: 1. ET tube 6.2 cm above the geeta. NG tube within the stomach. 2. No change in the mild interstitial process in the lung bases as described above. [facility], , 04/16/2024 6:51 AM
[2024-04-16] MEDS: DEXMEDETOMIDINE/0.9% NACL(PMX) 400 MCG in EMPTY BAG 1 BAG IV SCH (11:08)
[2024-04-16 11:34] LABS: Glucose,Whole Blood 145 mg/dL (70-110)
--- NOTE | 2024-04-16 14:46 | P.PN ---
Subjective Progress Note Date: 04/16/24 Principal diagnosis: Acute alcohol withdrawal This is a 58-year-old male patient with a history of ADHD, chronic and ongoing tobacco dependence, history of cocaine and heroin use in the past, heavy daily alcohol abuse who presented here on April 10, 2024 after drinking a pint of Surendra Mcclendon prior to his arrival. He typically drinks half a pint and 6 beers during the week then goes "unfiltered and drinks what ever he wants on the weekends. He lives with his mother. In the ER he stated like he felt he needed a drink but was trying not to to get where the point where he could live independently. Denies any recent drug use. His alcohol level on arrival was 365. He was placed in the CIWA protocol and admitted to the fifth floor. We are consulted today for possible ICU admission. His CIWA scale is up to 23. He was having shaking and restlessness trying to leave the floor, hallucinations. He had been given Ativan per protocol and Valium 5 mg IVP once prior to arrival. He is currently sitting up in bed. His mother is at the bedside. He is restless. He is cooperative currently. He is shaky. He is maintaining O2 saturations in the 90s on room air. He is hemodynamically stable. White count 6.9. Hemoglobin 16.9. Platelets 382. INR 1.1. Sodium 137. Potassium 4.0. Bicarb 23. BUN 15. Creatinine 0.6. Glucose 94. Urine drug screen was negative. AST 79. ALT 60. Lipase 267. He is on Lovenox for DVT prophylaxis. D5W with half-normal saline at 70 mL/h. Patient was seen today on 04/13/2024, I saw this patient yesterday and I recommended transfer to ICU because of acute delirium tremens and alcohol withdrawal. Shortly after he arrived to the ICU, patient was extremely agitated, restless, required restraints and he was not responding to Ativan and Precedex. I was notified about this patient, and I recommended intubation and placement of the patient on propofol and on Versed. Patient is now intubated he is on assist-control rate of 22 tidal volume 500 FiO2 40% and PEEP of 5 ABG showed a pO2 of 135 pCO2 29 pH of 7.53. His rate was cut down to 18. Patient is fully sedated with propofol at 35 mg/kg/min and also Versed 6 mg/h. Will try to maintain patient on 1 medication instead of both, and will likely increase propofol and discontinue Versed. Chest x-ray showed no evidence of active disease his WBC count is 11.4 hemoglobin 5.7 basic metabolic profile is normal except for relatively low potassium 3.9, renal profile is normal patient will be started on enteral feeding, he is on already GI and DVT prophylaxis. Seen today on 04/14/2024, patient remains in the ICU, intubated mechanically ventilated, assist-control rate 18 tidal volume 500 FiO2 40% PEEP of 5 ABG showed a pO2 of 86 pCO2 37 pH of 7.46, hence no changes were made in his ventilator settings. He is on propofol at 50 mcg/kg/min, however he seems to be quite agitated restless in spite of relatively good dose of propofol, hence I recommended adding Versed and titrate accordingly chest x-ray no evidence of active disease. Labs today are unremarkable including CBC and basic metabolic profile potassium is a bit low being addressed accordinglyRenal profile is normal. Patient remains on nutritional support, GI and DVT prophylaxis, and obviously is not quite ready to be weaned because of his extreme agitation related to alcohol withdrawal Patient was seen today on 04/15/2024, remains in the ICU intubated, mechanically ventilated, on assist-control rate of 18 tidal volume 500 FiO2 40% and PEEP of 5 she showed a pO2 of 94 pCO2 4 0 pH of 7.45 on D5 4 5 at 75 cc/h on Versed 6 mg/h on propofol 50 mcg/kg/min vital HP 55/55 continues to have extreme agitations on lower doses of propofol and Versed, hence I have no plans to wean and extubate at this point yet. Chest x-ray continues to show no evidence of infiltrate, WBC count is 14.1 hemoglobin is 14.1 electrolytes are normal BUN is 12 creatinine 0.60 Seen today on 04/16/2024, patient remains in the ICU, remains intubated and mechanically ventilated, he is on assist-control rate of 18 tidal volume 500 FiO2 40% PEEP of 5 ABG showed a pO2 of 80 pCO2 40 pH of 7.46. Patient has a relatively high endotracheal tube which will be advanced by 2 cm. Remains on propofol at 50 mcg/kg/min and Versed at 6 mg/h vital HP at 55/55. This morning the patient remains on sedatives, my plan again is to give the patient a trial off sedation and possibly transition to Precedex, if tolerated will proceed with weaning trials, if not we will continue the Versed and continue the propofol. In the meantime the patient is receiving the GI DVT prophylaxis also receiving enteral feeding. X-ray no evidence of active disease except the endotracheal tube needs to be advanced about 2 cm WBC count is 12.1 hemoglobin 13.2 electrolytes are normal renal profile is normal Objective - Vital Signs Vital signs: Vital Signs Temp 98.4 F 04/16/24 12:00 Pulse 63 04/16/24 14:00 Resp 18 04/16/24 14:00 BP 139/67 04/16/24 14:00 Pulse Ox 99 04/16/24 14:00 FiO2 40 04/16/24 12:02 Intake & Output 04/15/24 04/16/24 04/16/24 18:59 06:59 18:59 Intake Total 3266.071 8464.065 1278.625 Output Total 4464 119 8167 Balance 454.882 8134.065 -181.375 Weight 65.1 kg 66.6 kg Intake: IV 970 770 560 Dextrose 5%-0.45% NaCl 1, 970 770 560 000 ml @ 70 mls/hr IV . [id number] Rx#:[id number] Intake, IV Titration 205.961 287.065 218.625 Amount Dexmedetomidine/0.9% NaCl 18.704 (Pmx) 400 mcg In Empty Bag 1 bag @ 0.2 MCG/KG/HR 3.33 mls/hr IV .Q24H [facility] Rx#:[id number] Midazolam HCl 50 mg In 48.083 94 49.8 Sodium Chloride 0.9% 40 ml @ 1 MG/HR 1 mls/hr IV .Q24H [facility] Rx#:[id number] propofoL 1,000 mg In 157.878 193.065 150.121 Empty Bag 1 bag @ 15 MCG/ KG/MIN 5.919 mls/hr IV . [id number] [id number] Rx#:[id number] Tube Feeding 715 605 440 Other 90 90 60 Output: Urine 9423 623 6277 Other: Voiding Method Indwelling Catheter Indwelling Catheter Indwelling Catheter - Exam GENERAL EXAM: Revealed 58-year-old white male intubated mechanically ventilated sedated in no distress HEAD: Normocephalic. Atraumatic, orogastric tube and orotracheal tube are intact EYES: Normal reaction of pupils, equal size. NOSE: Clear with pink turbinates. THROAT: No erythema or exudates. NECK: No masses, no JVD. CHEST: No chest wall deformity. LUNGS: Equal air entry with no crackles, wheeze, rhonchi or dullness. CVS: S1 and S2 normal with no audible murmur, regular rhythm. ABDOMEN: No hepatosplenomegaly, normal bowel sounds, no guarding or rigidity. SKIN: No rashes CENTRAL NERVOUS SYSTEM: Could not assess because of sedation which will be placed on hold shortly EXTREMITIES: No clubbing edema or cyanosis - Labs CBC & Chem 7: 04/16/24 03:07 04/16/24 03:07 Labs: Abnormal Lab Results - Last 24 Hours (Table) 04/15/24 04/15/24 04/16/24 Range/Units 18:13 23:53 03:07 WBC 12.1 H (3.8-10.6) k/uL RBC 3.61 L (4.30-5.90) m/uL Hct 38.9 L (39.0-53.0) % MCV 107.6 H (80.0-100.0) fL MCH 36.5 H (25.0-35.0) pg ABG pH (7.35-7.45) ABG pO2 (83-108) mmHg ABG HCO3 (21-25) mmol/L ABG Total CO2 (19-24) mmol/L ABG O2 Saturation (94-97) % Sodium (137-145) mmol/L Chloride (98-107) mmol/L Creatinine (0.66-1.25) mg/dL Glucose (74-99) mg/dL POC Glucose (mg/dL) 142 H 141 H (70-110) mg/dL 04/16/24 04/16/24 04/16/24 Range/Units 03:07 05:31 06:04 WBC (3.8-10.6) k/uL RBC (4.30-5.90) m/uL Hct (39.0-53.0) % MCV (80.0-100.0) fL MCH (25.0-35.0) pg ABG pH 7.46 H (7.35-7.45) ABG pO2 79 L (83-108) mmHg ABG HCO3 28 H (21-25) mmol/L ABG Total CO2 29 H (19-24) mmol/L ABG O2 Saturation 97.1 H (94-97) % Sodium 135 L (137-145) mmol/L Chloride 108 H (98-107) mmol/L Creatinine 0.55 L (0.66-1.25) mg/dL Glucose 117 H (74-99) mg/dL POC Glucose (mg/dL) 161 H (70-110) mg/dL 04/16/24 Range/Units 11:32 WBC (3.8-10.6) k/uL RBC (4.30-5.90) m/uL Hct (39.0-53.0) % MCV (80.0-100.0) fL MCH (25.0-35.0) pg ABG pH (7.35-7.45) ABG pO2 (83-108) mmHg ABG HCO3 (21-25) mmol/L ABG Total CO2 (19-24) mmol/L ABG O2 Saturation (94-97) % Sodium (137-145) mmol/L Chloride (98-107) mmol/L Creatinine (0.66-1.25) mg/dL Glucose (74-99) mg/dL POC Glucose (mg/dL) 145 H (70-110) mg/dL Assessment and Plan Assessment: Impression: Acute alcohol withdrawal/delirium tremens requiring intubation mechanical ventilation because of extreme agitation, could not be controlled with Precedex and with Ativan. Acute alcohol intoxication on arrival 04/10/2024 with withdrawal delirium 04/12/2024 History of alcoholism drinking approximately half a pint of liquor and 6 beers a day during the week and then goes 'unfiltered' drinking what ever he wants on the weekends Previous history of cocaine and heroin abuse Chronic and ongoing tobacco dependence of 40 years Recommendation: Continue ventilatory support however daily trials of assessment for potential extubation will be done, hoping to get the patient controlled with just Precedex and then we could proceed to weaning and extubation Continue propofol and Versed /daily interruption of sedation Continue CIWA protocol Continue GI and DVT prophylaxis Nutritional support/enteral feeding, up to goal Not quite ready for weaning Patient is critically ill Critical care time is over 30 Time with Patient: Greater than 30
--- NOTE | 2024-04-16 14:58 | P.PN ---
Subjective Progress Note Date: 04/16/24 58-year-old male with known history of nicotine addiction, alcohol abuse presents to ER for alcohol withdrawal symptoms. Patient states that his last drink was yesterday afternoon. Usually drinks about half a pint and 6 beers during the week and then during the weekend is on filtered and drinks what ever he wants. Patient states that he is very anxious and feels like he needs to drink but he is wanted detox and live independently. Currently lives with his mother. Patient does have a history of heroin and cocaine use 20 years ago. Patient currently does smoke on a daily basis. Patient wants to stop drinking and detox and is willing to go to rehab program. Otherwise denied any nausea or vomiting. No chest pain or shortness of breath. No complaints abdominal pain or diarrhea. Denied any fever or chills. No recent illnesses. Denied any hallucinations.Laboratory data showed WBC 6.9 hemoglobin 16.9 and platelets 383 MCV 106.5 Sodium 143 potassium 4.3 chloride 107 bicarb is 26 BUN 21 and creatinine 0.66 and blood sugar 75. AST 79 ALT 16 alk phos 67 and serum alcohol level 365. 04/16/2024 --patient remains in the ICU, remains intubated and mechanically ventilated, he is on assist-control --ABG showed a pO2 of 80 pCO2 40 pH of 7.46. --Remains on propofol at 50 mcg/kg/min and Versed at 6 mg/h vital HP at 55/55. This morning the patient remains on sedatives; intensive care service is planning to give the patient a trial off sedation and possibly transition to Precedex, if tolerated will proceed with weaning trials, if not we will continue the Versed and continue the propofol. -X-ray no evidence of active disease except the endotracheal tube needs to be advanced about 2 cm WBC count is 12.1 hemoglobin 13.2 electrolytes are normal renal profile is normal Objective - Vital Signs Vital signs: Vital Signs Temp 98.4 F 04/16/24 12:00 Pulse 86 04/16/24 12:00 Resp 18 04/16/24 12:00 BP 131/67 04/16/24 12:00 Pulse Ox 97 04/16/24 12:00 FiO2 40 04/16/24 12:02 Intake & Output 04/15/24 04/16/24 04/16/24 18:59 06:59 18:59 Intake Total 8738.525 0128.065 956.482 Output Total 1120 545 760 Balance 604.845 1506.065 196.482 Weight 65.1 kg 66.6 kg Intake: IV 970 770 420 Dextrose 5%-0.45% NaCl 1, 970 770 420 000 ml @ 70 mls/hr IV . [id number] [facility] Rx#:[id number] Intake, IV Titration 205.961 287.065 146.482 Amount Midazolam HCl 50 mg In 48.083 94 49.8 Sodium Chloride 0.9% 40 ml @ 1 MG/HR 1 mls/hr IV .Q24H [facility] Rx#:[id number] propofoL 1,000 mg In 157.878 193.065 96.682 Empty Bag 1 bag @ 15 MCG/ KG/MIN 5.919 mls/hr IV . [id number] [facility] Rx#:[id number] Tube Feeding 715 605 330 Other 90 90 60 Output: Urine 1120 545 760 Other: Voiding Method Indwelling Catheter Indwelling Catheter Indwelling Catheter - Exam Patient is intubated and sedated in the ICU with an FiO2 of 50% and PEEP of 5. Currently sedated. Thin built, appears older than stated age HEENT: Normocephalic. Neck is supple. Pupils reactive. Nostrils clear. Oral cavity is moist. Neck reveals no JVD, carotid bruits, or thyromegaly. CHEST EXAMINATION: Trachea is central. Symmetrical expansion. Lung medina clear to auscultation and percussion. CARDIAC: Normal S1, S2 with no gallops. No murmurs, tachy ABDOMEN: Soft. Thin, bowel sounds normal. No organomegaly. No abdominal bruits. Extremities: reveal no edema. No clubbing or cyanosis Neurologically awake, alert, oriented x3 with well-coordinated movements. No focal deficits noted Skin: No rash or skin lesions. Psychiatric: Unable to completely assess as patient is maintained on a Versed and propofol drip Musculoskeletal: No joint swelling or deformity. Normal range of motion. - Labs CBC & Chem 7: 04/16/24 03:07 04/16/24 03:07 Labs: Abnormal Lab Results - Last 24 Hours (Table) 04/15/24 04/15/24 04/16/24 Range/Units 18:13 23:53 03:07 WBC 12.1 H (3.8-10.6) k/uL RBC 3.61 L (4.30-5.90) m/uL Hct 38.9 L (39.0-53.0) % MCV 107.6 H (80.0-100.0) fL MCH 36.5 H (25.0-35.0) pg ABG pH (7.35-7.45) ABG pO2 (83-108) mmHg ABG HCO3 (21-25) mmol/L ABG Total CO2 (19-24) mmol/L ABG O2 Saturation (94-97) % Sodium (137-145) mmol/L Chloride (98-107) mmol/L Creatinine (0.66-1.25) mg/dL Glucose (74-99) mg/dL POC Glucose (mg/dL) 142 H 141 H (70-110) mg/dL 04/16/24 04/16/24 04/16/24 Range/Units 03:07 05:31 06:04 WBC (3.8-10.6) k/uL RBC (4.30-5.90) m/uL Hct (39.0-53.0) % MCV (80.0-100.0) fL MCH (25.0-35.0) pg ABG pH 7.46 H (7.35-7.45) ABG pO2 79 L (83-108) mmHg ABG HCO3 28 H (21-25) mmol/L ABG Total CO2 29 H (19-24) mmol/L ABG O2 Saturation 97.1 H (94-97) % Sodium 135 L (137-145) mmol/L Chloride 108 H (98-107) mmol/L Creatinine 0.55 L (0.66-1.25) mg/dL Glucose 117 H (74-99) mg/dL POC Glucose (mg/dL) 161 H (70-110) mg/dL 04/16/24 Range/Units 11:32 WBC (3.8-10.6) k/uL RBC (4.30-5.90) m/uL Hct (39.0-53.0) % MCV (80.0-100.0) fL MCH (25.0-35.0) pg ABG pH (7.35-7.45) ABG pO2 (83-108) mmHg ABG HCO3 (21-25) mmol/L ABG Total CO2 (19-24) mmol/L ABG O2 Saturation (94-97) % Sodium (137-145) mmol/L Chloride (98-107) mmol/L Creatinine (0.66-1.25) mg/dL Glucose (74-99) mg/dL POC Glucose (mg/dL) 145 H (70-110) mg/dL Assessment and Plan Assessment: Acute alcohol intoxication with level 365 on admission. Acute alcohol withdrawal symptoms including hallucinations, shakiness, restlessness, increased anxiety with increased agitation requiring mechanical ventilation Hypokalemia, being replaced Alcoholic hepatitis secondary to continued ongoing alcohol abuse Macrocytosis secondary to alcohol abuse Alcohol use disorder Vaping GI prophylaxis DVT prophylaxis Full code Plan: Patient will be continued in the ICU on mechanical ventilation with weaning trials once sedation and Versed is weaned Pulmonary track hoe operator following and will continue on CIWA protocol as well as withdrawal measures Potassium was 3.1 today being replaced per protocol and will follow-up on repeat labs Will discuss further with case management/social work once patient is successfully extubated and mentation is improved as patient does want a go to [place] for continued alcohol rehab
[2024-04-16 17:37] LABS: Glucose,Whole Blood 161 mg/dL (70-110)
[2024-04-16 23:35] LABS: Glucose,Whole Blood 132 mg/dL (70-110)
[2024-04-17 05:21] LABS: Glucose,Whole Blood 122 mg/dL (70-110)
[2024-04-17 05:34] LABS: ABG Base Excess 4.1 mmol/L; ABG HCO3 28 mmol/L (21-25); ABG Oxygen Saturation 98.2 % (94-97); ABG PCO2 40 mmHg (35-45); ABG PH 7.46 (7.35-7.45); ABG PO2 92 mmHg (83-108); ABG TCO2 30 mmol/L (19-24); Allen Test Performed? Yes
[2024-04-17 05:39] LABS: HCT 40.1 % (39.0-53.0); HGB 13.6 gm/dL (13.0-17.5); MCH 36.7 pg (25.0-35.0); MCHC 33.9 g/dL (31.0-37.0); MCV 108.5 fL (80.0-100.0); Macrocytosis Moderate; Mean Platelet Volume 7.5; Platelet Count 297 k/uL (150-450); RDW 12.9 % (11.5-15.5); WBC 10.5 k/uL (3.8-10.6)
[2024-04-17 05:51] LABS: African American GFR (CKD) >90 (>60 ml/min/1.73 sqM); Anion Gap 3 mmol/L; Blood Urea Nitrogen 17 mg/dL (9-20); Calcium 8.6 mg/dL (8.4-10.2); Carbon Dioxide 26 mmol/L (22-30); Chloride 109 mmol/L (98-107); Glucose 121 mg/dL (74-99); Non-African American GFR(CKD) >90 (>60 ml/min/1.73 sqM); Potassium 4.1 mmol/L (3.5-5.1); Sodium 138 mmol/L (137-145)
--- NOTE | 2024-04-17 07:09 | XR ---
EXAMINATION TYPE: XR chest 1V portable DATE OF EXAM: 04/17/2024 COMPARISON: 04/16/2024 CLINICAL INDICATION: Male, 58 years old with history of vented; TECHNIQUE: Single frontal view of the chest is obtained. FINDINGS: ET tube is 5.8 cm above the geeta. The NG tube is within the stomach. There is a small focal predominantly interstitial infiltrates in the lung bases which are stable. There are no pleural effusions. There is no pneumothorax. Heart size is normal. The osseous structures are intact. IMPRESSION: 1. ET tube 5.8 cm by the geeta. 2. NG tube within the stomach. 3. No change in small bibasilar interstitial infiltrates . [facility], , 04/17/2024 7:06 AM
[2024-04-17 12:13] LABS: Glucose,Whole Blood 123 mg/dL (70-110)
--- NOTE | 2024-04-17 14:14 | P.PN ---
Subjective Progress Note Date: 04/17/24 Principal diagnosis: Acute alcohol withdrawal This is a 58-year-old male patient with a history of ADHD, chronic and ongoing tobacco dependence, history of cocaine and heroin use in the past, heavy daily alcohol abuse who presented here on April 10, 2024 after drinking a pint of Surendra Mcclendon prior to his arrival. He typically drinks half a pint and 6 beers during the week then goes "unfiltered and drinks what ever he wants on the weekends. He lives with his mother. In the ER he stated like he felt he needed a drink but was trying not to to get where the point where he could live independently. Denies any recent drug use. His alcohol level on arrival was 365. He was placed in the CIWA protocol and admitted to the fifth floor. We are consulted today for possible ICU admission. His CIWA scale is up to 23. He was having shaking and restlessness trying to leave the floor, hallucinations. He had been given Ativan per protocol and Valium 5 mg IVP once prior to arrival. He is currently sitting up in bed. His mother is at the bedside. He is restless. He is cooperative currently. He is shaky. He is maintaining O2 saturations in the 90s on room air. He is hemodynamically stable. White count 6.9. Hemoglobin 16.9. Platelets 382. INR 1.1. Sodium 137. Potassium 4.0. Bicarb 23. BUN 15. Creatinine 0.6. Glucose 94. Urine drug screen was negative. AST 79. ALT 60. Lipase 267. He is on Lovenox for DVT prophylaxis. D5W with half-normal saline at 70 mL/h. Patient was seen today on 04/13/2024, I saw this patient yesterday and I recommended transfer to ICU because of acute delirium tremens and alcohol withdrawal. Shortly after he arrived to the ICU, patient was extremely agitated, restless, required restraints and he was not responding to Ativan and Precedex. I was notified about this patient, and I recommended intubation and placement of the patient on propofol and on Versed. Patient is now intubated he is on assist-control rate of 22 tidal volume 500 FiO2 40% and PEEP of 5 ABG showed a pO2 of 135 pCO2 29 pH of 7.53. His rate was cut down to 18. Patient is fully sedated with propofol at 35 mg/kg/min and also Versed 6 mg/h. Will try to maintain patient on 1 medication instead of both, and will likely increase propofol and discontinue Versed. Chest x-ray showed no evidence of active disease his WBC count is 11.4 hemoglobin 5.7 basic metabolic profile is normal except for relatively low potassium 3.9, renal profile is normal patient will be started on enteral feeding, he is on already GI and DVT prophylaxis. Seen today on 04/14/2024, patient remains in the ICU, intubated mechanically ventilated, assist-control rate 18 tidal volume 500 FiO2 40% PEEP of 5 ABG showed a pO2 of 86 pCO2 37 pH of 7.46, hence no changes were made in his ventilator settings. He is on propofol at 50 mcg/kg/min, however he seems to be quite agitated restless in spite of relatively good dose of propofol, hence I recommended adding Versed and titrate accordingly chest x-ray no evidence of active disease. Labs today are unremarkable including CBC and basic metabolic profile potassium is a bit low being addressed accordinglyRenal profile is normal. Patient remains on nutritional support, GI and DVT prophylaxis, and obviously is not quite ready to be weaned because of his extreme agitation related to alcohol withdrawal Patient was seen today on 04/15/2024, remains in the ICU intubated, mechanically ventilated, on assist-control rate of 18 tidal volume 500 FiO2 40% and PEEP of 5 she showed a pO2 of 94 pCO2 4 0 pH of 7.45 on D5 4 5 at 75 cc/h on Versed 6 mg/h on propofol 50 mcg/kg/min vital HP 55/55 continues to have extreme agitations on lower doses of propofol and Versed, hence I have no plans to wean and extubate at this point yet. Chest x-ray continues to show no evidence of infiltrate, WBC count is 14.1 hemoglobin is 14.1 electrolytes are normal BUN is 12 creatinine 0.60 Seen today on 04/16/2024, patient remains in the ICU, remains intubated and mechanically ventilated, he is on assist-control rate of 18 tidal volume 500 FiO2 40% PEEP of 5 ABG showed a pO2 of 80 pCO2 40 pH of 7.46. Patient has a relatively high endotracheal tube which will be advanced by 2 cm. Remains on propofol at 50 mcg/kg/min and Versed at 6 mg/h vital HP at 55/55. This morning the patient remains on sedatives, my plan again is to give the patient a trial off sedation and possibly transition to Precedex, if tolerated will proceed with weaning trials, if not we will continue the Versed and continue the propofol. In the meantime the patient is receiving the GI DVT prophylaxis also receiving enteral feeding. X-ray no evidence of active disease except the endotracheal tube needs to be advanced about 2 cm WBC count is 12.1 hemoglobin 13.2 electrolytes are normal renal profile is normal Seen today on, patient remains in the ICU, intubated and mechanically ventilated still requiring significant amount of sedation including propofol and Versed. His propofol is 50 mg/kg/min his Versed is 5 mg/h today I plan to add Precedex and eventually withdrawal and taper down both Versed and propofol, and the patient remains calm on Precedex alone may consider extubation. He is on assist-control rate of 18 tidal volume 500 FiO2 40% PEEP of 5 ABG showed a pO2 of 92 pCO2 40 pH of 7.46 chest x-ray no evidence of active disease labs were reviewed WBC count is 10.5 hemoglobin 13.6 basic metabolic profile is normal renal profile is normal Objective - Vital Signs Vital signs: Vital Signs Temp 98.9 F 04/17/24 12:00 Pulse 67 04/17/24 13:00 Resp 18 04/17/24 13:00 BP 154/66 04/17/24 13:00 Pulse Ox 99 04/17/24 13:00 FiO2 40 04/17/24 12:00 Intake & Output 04/16/24 04/17/24 04/17/24 18:59 06:59 18:59 Intake Total 6421.176 1611.878 1193.098 Output Total 7607 358 4772 Balance -31.810 1168.878 -6.902 Weight 67 kg Intake: IV 840 840 490 Dextrose 5%-0.45% NaCl 1, 840 840 490 000 ml @ 70 mls/hr IV . [id number] [facility] Rx#:[id number] Intake, IV Titration 278.190 368.878 208.098 Amount Dexmedetomidine/0.9% NaCl 71.429 45.178 (Pmx) 400 mcg In Empty Bag 1 bag @ 0.2 MCG/KG/HR 3.33 mls/hr IV .Q24H [facility] Rx#:[id number] Midazolam HCl 50 mg In 49.8 108.1 21.25 Sodium Chloride 0.9% 40 ml @ 1 MG/HR 1 mls/hr IV .Q24H [facility] Rx#:[id number] propofoL 1,000 mg In 156.961 260.778 141.670 Empty Bag 1 bag @ 15 MCG/ KG/MIN 5.919 mls/hr IV . [id number] [facility] Rx#:[id number] Oral 50 Tube Feeding 660 660 385 Other 90 90 60 Output: Urine 4827 992 8007 Other: Voiding Method Indwelling Catheter Indwelling Catheter Indwelling Catheter - Exam GENERAL EXAM: Revealed 58-year-old white male intubated mechanically ventilated sedated in no distress HEAD: Normocephalic. Atraumatic, orogastric tube and orotracheal tube are intact EYES: Normal reaction of pupils, equal size. NOSE: Clear with pink turbinates. THROAT: No erythema or exudates. NECK: No masses, no JVD. CHEST: No chest wall deformity. LUNGS: Equal air entry with no crackles, wheeze, rhonchi or dullness. CVS: S1 and S2 normal with no audible murmur, regular rhythm. ABDOMEN: No hepatosplenomegaly, normal bowel sounds, no guarding or rigidity. SKIN: No rashes CENTRAL NERVOUS SYSTEM: Could not assess because of sedation EXTREMITIES: No clubbing edema or cyanosis - Labs CBC & Chem 7: 04/17/24 05:28 04/17/24 05:28 Labs: Abnormal Lab Results - Last 24 Hours (Table) 04/16/24 04/16/24 04/17/24 Range/Units 17:36 23:34 05:20 RBC (4.30-5.90) m/uL MCV (80.0-100.0) fL MCH (25.0-35.0) pg ABG pH (7.35-7.45) ABG HCO3 (21-25) mmol/L ABG Total CO2 (19-24) mmol/L ABG O2 Saturation (94-97) % Chloride (98-107) mmol/L Creatinine (0.66-1.25) mg/dL Glucose (74-99) mg/dL POC Glucose (mg/dL) 161 H 132 H 122 H (70-110) mg/dL 04/17/24 04/17/24 04/17/24 Range/Units 05:28 05:28 05:31 RBC 3.70 L (4.30-5.90) m/uL MCV 108.5 H (80.0-100.0) fL MCH 36.7 H (25.0-35.0) pg ABG pH 7.46 H (7.35-7.45) ABG HCO3 28 H (21-25) mmol/L ABG Total CO2 30 H (19-24) mmol/L ABG O2 Saturation 98.2 H (94-97) % Chloride 109 H (98-107) mmol/L Creatinine 0.56 L (0.66-1.25) mg/dL Glucose 121 H (74-99) mg/dL POC Glucose (mg/dL) (70-110) mg/dL 04/17/24 Range/Units 12:12 RBC (4.30-5.90) m/uL MCV (80.0-100.0) fL MCH (25.0-35.0) pg ABG pH (7.35-7.45) ABG HCO3 (21-25) mmol/L ABG Total CO2 (19-24) mmol/L ABG O2 Saturation (94-97) % Chloride (98-107) mmol/L Creatinine (0.66-1.25) mg/dL Glucose (74-99) mg/dL POC Glucose (mg/dL) 123 H (70-110) mg/dL Assessment and Plan Assessment: Impression: Acute alcohol withdrawal/delirium tremens requiring intubation mechanical ventilation because of extreme agitation, could not be controlled with Precedex and with Ativan. Acute alcohol intoxication on arrival 04/10/2024 with withdrawal delirium 04/12/2024 History of alcoholism drinking approximately half a pint of liquor and 6 beers a day during the week and then goes 'unfiltered' drinking what ever he wants on the weekends Previous history of cocaine and heroin abuse Chronic and ongoing tobacco dependence of 40 years Recommendation: Continue ventilatory support however daily trials of assessment for potential extubation will be done, including today Continue propofol and Versed /daily interruption of sedation Continue CIWA protocol Continue GI and DVT prophylaxis Nutritional support/enteral feeding, up to goal Not quite ready for weaning Patient is critically ill Critical care time is over 30 Time with Patient: Greater than 30
--- NOTE | 2024-04-17 15:24 | P.PN ---
Subjective Progress Note Date: 04/17/24 58-year-old male with known history of nicotine addiction, alcohol abuse presents to ER for alcohol withdrawal symptoms. Patient states that his last drink was yesterday afternoon. Usually drinks about half a pint and 6 beers during the week and then during the weekend is on filtered and drinks what ever he wants. Patient states that he is very anxious and feels like he needs to drink but he is wanted detox and live independently. Currently lives with his mother. Patient does have a history of heroin and cocaine use 20 years ago. Patient currently does smoke on a daily basis. Patient wants to stop drinking and detox and is willing to go to rehab program. Otherwise denied any nausea or vomiting. No chest pain or shortness of breath. No complaints abdominal pain or diarrhea. Denied any fever or chills. No recent illnesses. Denied any hallucinations.Laboratory data showed WBC 6.9 hemoglobin 16.9 and platelets 383 MCV 106.5 Sodium 143 potassium 4.3 chloride 107 bicarb is 26 BUN 21 and creatinine 0.66 and blood sugar 75. AST 79 ALT 16 alk phos 67 and serum alcohol level 365. 04/16/2024 --patient remains in the ICU, remains intubated and mechanically ventilated, he is on assist-control --ABG showed a pO2 of 80 pCO2 40 pH of 7.46. --Remains on propofol at 50 mcg/kg/min and Versed at 6 mg/h vital HP at 55/55. This morning the patient remains on sedatives; intensive care service is planning to give the patient a trial off sedation and possibly transition to Precedex, if tolerated will proceed with weaning trials, if not we will continue the Versed and continue the propofol. -X-ray no evidence of active disease except the endotracheal tube needs to be advanced about 2 cm WBC count is 12.1 hemoglobin 13.2 electrolytes are normal renal profile is normal 24-hour interval change 04/17/2024 Patient is seen and evaluated in room at bedside; patient remains in the ICU, intubated and mechanically ventilated still requiring significant amount of sedation including propofol and Versed. He is on assist-control rate of 18 tidal volume 500 FiO2 40% PEEP of 5 - ABG showed a pO2 of 92 pCO2 40 pH of 7.46 chest x-ray no evidence of active disease labs were reviewed WBC count is 10.5 hemoglobin 13.6 basic metabolic profile is normal renal profile is normal Continue CIWA protocol Continue GI and DVT prophylaxis Nutritional support/enteral feeding, up to goal Objective - Vital Signs Vital signs: Vital Signs Temp 98.2 F 04/17/24 08:00 Pulse 89 04/17/24 10:00 Resp 18 04/17/24 10:00 BP 113/62 04/17/24 10:00 Pulse Ox 94 L 04/17/24 10:00 FiO2 40 04/17/24 08:50 Intake & Output 04/16/24 04/17/24 04/17/24 18:59 06:59 18:59 Intake Total 1026.627 4898.878 676.682 Output Total 1900 790 500 Balance -31.810 1168.878 176.682 Weight 67 kg Intake: IV 840 840 280 Dextrose 5%-0.45% NaCl 1, 840 840 280 000 ml @ 70 mls/hr IV . [id number] Rx#:[id number] Intake, IV Titration 278.190 368.878 96.682 Amount Dexmedetomidine/0.9% NaCl 71.429 0 (Pmx) 400 mcg In Empty Bag 1 bag @ 0.2 MCG/KG/HR 3.33 mls/hr IV .Q24H [facility] Rx#:[id number] Midazolam HCl 50 mg In 49.8 108.1 Sodium Chloride 0.9% 40 ml @ 1 MG/HR 1 mls/hr IV .Q24H [facility] Rx#:[id number] propofoL 1,000 mg In 156.961 260.778 96.682 Empty Bag 1 bag @ 15 MCG/ KG/MIN 5.919 mls/hr IV . [id number] [facility] Rx#:[id number] Oral 50 Tube Feeding 660 660 220 Other 90 90 30 Output: Urine 1900 790 500 Other: Voiding Method Indwelling Catheter Indwelling Catheter Indwelling Catheter - Exam Patient is intubated and sedated in the ICU with an FiO2 of 50% and PEEP of 5. Currently sedated. Thin built, appears older than stated age HEENT: Normocephalic. Neck is supple. Pupils reactive. Nostrils clear. Oral cavity is moist. Neck reveals no JVD, carotid bruits, or thyromegaly. CHEST EXAMINATION: Trachea is central. Symmetrical expansion. Lung medina clear to auscultation and percussion. CARDIAC: Normal S1, S2 with no gallops. No murmurs, tachy ABDOMEN: Soft. Thin, bowel sounds normal. No organomegaly. No abdominal bruits. Extremities: reveal no edema. No clubbing or cyanosis Neurologically awake, alert, oriented x3 with well-coordinated movements. No focal deficits noted Skin: No rash or skin lesions. Psychiatric: Unable to completely assess as patient is maintained on a Versed and propofol drip Musculoskeletal: No joint swelling or deformity. Normal range of motion. - Labs CBC & Chem 7: 04/17/24 05:28 04/17/24 05:28 Labs: Abnormal Lab Results - Last 24 Hours (Table) 04/16/24 04/16/24 04/16/24 Range/Units 11:32 17:36 23:34 RBC (4.30-5.90) m/uL MCV (80.0-100.0) fL MCH (25.0-35.0) pg ABG pH (7.35-7.45) ABG HCO3 (21-25) mmol/L ABG Total CO2 (19-24) mmol/L ABG O2 Saturation (94-97) % Chloride (98-107) mmol/L Creatinine (0.66-1.25) mg/dL Glucose (74-99) mg/dL POC Glucose (mg/dL) 145 H 161 H 132 H (70-110) mg/dL 04/17/24 04/17/24 04/17/24 Range/Units 05:20 05:28 05:28 RBC 3.70 L (4.30-5.90) m/uL MCV 108.5 H (80.0-100.0) fL MCH 36.7 H (25.0-35.0) pg ABG pH (7.35-7.45) ABG HCO3 (21-25) mmol/L ABG Total CO2 (19-24) mmol/L ABG O2 Saturation (94-97) % Chloride 109 H (98-107) mmol/L Creatinine 0.56 L (0.66-1.25) mg/dL Glucose 121 H (74-99) mg/dL POC Glucose (mg/dL) 122 H (70-110) mg/dL 04/17/24 Range/Units 05:31 RBC (4.30-5.90) m/uL MCV (80.0-100.0) fL MCH (25.0-35.0) pg ABG pH 7.46 H (7.35-7.45) ABG HCO3 28 H (21-25) mmol/L ABG Total CO2 30 H (19-24) mmol/L ABG O2 Saturation 98.2 H (94-97) % Chloride (98-107) mmol/L Creatinine (0.66-1.25) mg/dL Glucose (74-99) mg/dL POC Glucose (mg/dL) (70-110) mg/dL Assessment and Plan Assessment: Acute alcohol intoxication with level 365 on admission. Acute alcohol withdrawal symptoms including hallucinations, shakiness, restlessness, increased anxiety with increased agitation requiring mechanical ventilation Hypokalemia, being replaced Alcoholic hepatitis secondary to continued ongoing alcohol abuse Macrocytosis secondary to alcohol abuse Alcohol use disorder Vaping GI prophylaxis DVT prophylaxis Full code Plan: Patient will be continued in the ICU on mechanical ventilation with weaning trials once sedation and Versed is weaned Pulmonary au pair following and will continue on CIWA protocol as well as withdrawal measures Potassium was 3.1 today being replaced per protocol and will follow-up on repeat labs Will discuss further with case management/social work once patient is successfully extubated and mentation is improved as patient does want a go to [place] for continued alcohol rehab
[2024-04-17 17:41] LABS: Glucose,Whole Blood 174 mg/dL (70-110)
[2024-04-17] MEDS: HALOPERIDOL LACTATE 5 MG/ML 1 ML VIAL IVP PRN (18:04)
[2024-04-17 23:45] LABS: Glucose,Whole Blood 123 mg/dL (70-110)
[2024-04-18 06:16] LABS: Glucose,Whole Blood 110 mg/dL (70-110)
[2024-04-18 06:22] LABS: Basophils % (A) 0 %; Eosinophils # (A) 0.3 k/uL (0-0.7); Eosinophils % (A) 2 %; HCT 44.6 % (39.0-53.0); HGB 14.3 gm/dL (13.0-17.5); Lymphocytes # (A) 1.3 k/uL (1.0-4.8); Lymphocytes % (A) 12 %; MCH 34.7 pg (25.0-35.0); MCV 108.3 fL (80.0-100.0); Macrocytosis Moderate; Mean Platelet Volume 8.2; Monocytes # (A) 1.2 k/uL (0-1.0); Monocytes % (A) 11 %; Neutrophils % (A) 73 %; Platelet Count 410 k/uL (150-450); RBC 4.12 m/uL (4.30-5.90); RDW 12.6 % (11.5-15.5)
[2024-04-18 06:51] LABS: African American GFR (CKD) >90 (>60 ml/min/1.73 sqM); Anion Gap 8 mmol/L; Blood Urea Nitrogen 17 mg/dL (9-20); Carbon Dioxide 25 mmol/L (22-30); Chloride 106 mmol/L (98-107); Glucose 104 mg/dL (74-99); Non-African American GFR(CKD) >90 (>60 ml/min/1.73 sqM); Potassium 4.4 mmol/L (3.5-5.1); Sodium 139 mmol/L (137-145)
--- NOTE | 2024-04-18 08:05 | P.PN ---
Subjective 58-year-old male with known history of nicotine addiction, alcohol abuse presents to ER for alcohol withdrawal symptoms. Patient states that his last drink was yesterday afternoon. Usually drinks about half a pint and 6 beers during the week and then during the weekend is on filtered and drinks what ever he wants. Patient states that he is very anxious and feels like he needs to drink but he is wanted detox and live independently. Currently lives with his mother. Patient does have a history of heroin and cocaine use 20 years ago. Patient currently does smoke on a daily basis. Patient wants to stop drinking and detox and is willing to go to rehab program. Otherwise denied any nausea or vomiting. No chest pain or shortness of breath. No complaints abdominal pain or diarrhea. Denied any fever or chills. No recent illnesses. Denied any hallucinations.Laboratory data showed WBC 6.9 hemoglobin 16.9 and platelets 383 MCV 106.5 Sodium 143 potassium 4.3 chloride 107 bicarb is 26 BUN 21 and creatinine 0.66 and blood sugar 75. AST 79 ALT 16 alk phos 67 and serum alcohol level 365. 04/16/2024 --patient remains in the ICU, remains intubated and mechanically ventilated, he is on assist-control --ABG showed a pO2 of 80 pCO2 40 pH of 7.46. --Remains on propofol at 50 mcg/kg/min and Versed at 6 mg/h vital HP at 55/55. This morning the patient remains on sedatives; intensive care service is planning to give the patient a trial off sedation and possibly transition to Precedex, if tolerated will proceed with weaning trials, if not we will continue the Versed and continue the propofol. -X-ray no evidence of active disease except the endotracheal tube needs to be advanced about 2 cm WBC count is 12.1 hemoglobin 13.2 electrolytes are normal renal profile is normal 24-hour interval change 04/17/2024 Patient is seen and evaluated in room at bedside; patient remains in the ICU, intubated and mechanically ventilated still requiring significant amount of sedation including propofol and Versed. He is on assist-control rate of 18 tidal volume 500 FiO2 40% PEEP of 5 - ABG showed a pO2 of 92 pCO2 40 pH of 7.46 chest x-ray no evidence of active disease labs were reviewed WBC count is 10.5 hemoglobin 13.6 basic metabolic profile is normal renal profile is normal Continue CIWA protocol Continue GI and DVT prophylaxis Nutritional support/enteral feeding, up to goal 04/18 Patient is s/p extubation overnight He still feels lethargic, but he can answer simple questions. He denies chest pain or dyspnea. He is generally weak. No overt withdrawal symptoms He still been weaned off Precedex and currently at 0.6 mcg/kg/h Also he is getting D5 half-normal saline at 70 mL/h Patient currently calm and sitter at bedside Objective - Vital Signs Vital signs: Vital Signs Temp 98.2 F 04/18/24 04:00 Pulse 75 04/18/24 07:00 Resp 21 04/18/24 07:00 BP 148/72 04/18/24 07:00 Pulse Ox 99 04/18/24 07:00 FiO2 40 04/17/24 16:00 Intake & Output 04/17/24 04/18/24 04/18/24 18:59 06:59 18:59 Intake Total 0692.884 5151.662 70 Output Total 1960 1125 400 Balance -84.677 -73.338 -330 Weight 65.5 kg Intake: IV 910 770 70 Dextrose 5%-0.45% NaCl 1, 910 770 70 000 ml @ 70 mls/hr IV . [id number] [id number] Rx#:[id number] Intake, IV Titration 305.323 281.662 Amount Dexmedetomidine/0.9% NaCl 127.929 281.662 (Pmx) 400 mcg In Empty Bag 1 bag @ 0.2 MCG/KG/HR 3.33 mls/hr IV .Q24H [facility] Rx#:[id number] Midazolam HCl 50 mg In 33.817 Sodium Chloride 0.9% 40 ml @ 1 MG/HR 1 mls/hr IV .Q24H [facility] Rx#:[id number] propofoL 1,000 mg In 143.577 Empty Bag 1 bag @ 15 MCG/ KG/MIN 5.919 mls/hr IV . [id number] [facility] Rx#:[id number] Oral 50 Tube Feeding 550 Other 60 Output: Urine 1960 1125 400 Other: Voiding Method Indwelling Catheter Indwelling Catheter - Exam -GENERAL: The patient is alert and oriented x3, not in any acute distress. Well developed, well nourished. Generally weak HEENT: Pupils are round and equally reacting to light. EOMI. No scleral icterus. No conjunctival pallor. Normocephalic, atraumatic. No pharyngeal erythema. No thyromegaly. CARDIOVASCULAR: S1 and S2 present. No murmurs, rubs, or gallops. PULMONARY: Chest is clear to auscultation, no wheezing , no crackles. ABDOMEN: Soft, nontender, nondistended, normoactive bowel sounds. No palpable organomegaly. MUSCULOSKELETAL: No joint swelling or deformity. EXTREMITIES: No cyanosis, clubbing, or pedal edema. NEUROLOGICAL: Gross neurological examination did not reveal any focal deficits. SKIN: No rashes. no petechiae. - Labs CBC & Chem 7: 04/18/24 05:14 04/18/24 05:14 Labs: Abnormal Lab Results - Last 24 Hours (Table) 04/17/24 04/17/24 04/17/24 Range/Units 12:12 17:40 23:44 WBC (3.8-10.6) k/uL RBC (4.30-5.90) m/uL MCV (80.0-100.0) fL Neutrophils # (1.3-7.7) k/uL Monocytes # (0-1.0) k/uL Creatinine (0.66-1.25) mg/dL Glucose (74-99) mg/dL POC Glucose (mg/dL) 123 H 174 H 123 H (70-110) mg/dL 04/18/24 04/18/24 Range/Units 05:14 05:14 WBC 11.0 H (3.8-10.6) k/uL RBC 4.12 L (4.30-5.90) m/uL MCV 108.3 H (80.0-100.0) fL Neutrophils # 8.0 H (1.3-7.7) k/uL Monocytes # 1.2 H (0-1.0) k/uL Creatinine 0.55 L (0.66-1.25) mg/dL Glucose 104 H (74-99) mg/dL POC Glucose (mg/dL) (70-110) mg/dL Assessment and Plan Assessment: -Acute alcohol intoxication with level 365 on admission. -Severe delirium tremens, acute alcohol withdrawal symptoms including hallucinations, shakiness, restlessness, increased anxiety with increased agitat ion requiring mechanical ventilation. Requiring intubation and mechanical ventilation. Patient currently extubated on 04/18 -Hypokalemia, being replaced -Alcoholic hepatitis secondary to continued ongoing alcohol abuse -Macrocytosis secondary to alcohol abuse -Alcohol use disorder -Vaping Plan: Continue with weaning Precedex Continue with IV hydration Continue with CIWA and thiamine Pulmonary/critical care following closely Continue sitter at bedside Labs and medication were reviewed.. Continue same treatment. Continue with symptomatic treatment. Resume home medication. Monitor labs and vitals. DVT and GI prophylaxis. Further recommendations as per clinical course of the patient DVT prophylaxis: Subcutaneous heparin GI Prophylaxis: Pepcid PT/OT: Pending Prognosis is guarded
[2024-04-18 12:02] LABS: Glucose,Whole Blood 140 mg/dL (70-110)
--- NOTE | 2024-04-18 14:31 | P.PN ---
Subjective Progress Note Date: 04/18/24 This is a 58-year-old male patient with a history of ADHD, chronic and ongoing tobacco dependence, history of cocaine and heroin use in the past, heavy daily alcohol abuse who presented here on April 10, 2024 after drinking a pint of Surend[employer] Mcclendon prior to his arrival. He typically drinks half a pint and 6 beers during the week then goes "unfiltered and drinks what ever he wants on the weekends. He lives with his mother. In the ER he stated like he felt he needed a drink but was trying not to to get where the point where he could live independently. Denies any recent drug use. His alcohol level on arrival was 365. He was placed in the CIWA protocol and admitted to the fifth floor. We are consulted today for possible ICU admission. His CIWA scale is up to 23. He was having shaking and restlessness trying to leave the floor, hallucinations. He had been given Ativan per protocol and Valium 5 mg IVP once prior to arrival. He is currently sitting up in bed. His mother is at the bedside. He is restless. He is cooperative currently. He is shaky. He is maintaining O2 saturations in the 90s on room air. He is hemodynamically stable. White count 6.9. Hemoglobin 16.9. Platelets 382. INR 1.1. Sodium 137. Potassium 4.0. Bicarb 23. BUN 15. Creatinine 0.6. Glucose 94. Urine drug screen was negative. AST 79. ALT 60. Lipase 267. He is on Lovenox for DVT prophylaxis. D5W with half-normal saline at 70 mL/h. Patient was seen today on 04/13/2024, I saw this patient yesterday and I recommended transfer to ICU because of acute delirium tremens and alcohol withdrawal. Shortly after he arrived to the ICU, patient was extremely agitated, restless, required restraints and he was not responding to Ativan and Precedex. I was notified about this patient, and I recommended intubation and placement of the patient on propofol and on Versed. Patient is now intubated he is on assist-control rate of 22 tidal volume 500 FiO2 40% and PEEP of 5 ABG showed a pO2 of 135 pCO2 29 pH of 7.53. His rate was cut down to 18. Patient is fully sedated with propofol at 35 mg/kg/min and also Versed 6 mg/h. Will try to maintain patient on 1 medication instead of both, and will likely increase propofol and discontinue Versed. Chest x-ray showed no evidence of active disease his WBC count is 11.4 hemoglobin 5.7 basic metabolic profile is normal except for relatively low potassium 3.9, renal profile is normal patient will be started on enteral feeding, he is on already GI and DVT prophylaxis. Seen today on 04/14/2024, patient remains in the ICU, intubated mechanically ventilated, assist-control rate 18 tidal volume 500 FiO2 40% PEEP of 5 ABG showed a pO2 of 86 pCO2 37 pH of 7.46, hence no changes were made in his ventilator settings. He is on propofol at 50 mcg/kg/min, however he seems to be quite agitated restless in spite of relatively good dose of propofol, hence I recommended adding Versed and titrate accordingly chest x-ray no evidence of active disease. Labs today are unremarkable including CBC and basic metabolic profile potassium is a bit low being addressed accordinglyRenal profile is normal. Patient remains on nutritional support, GI and DVT prophylaxis, and obviously is not quite ready to be weaned because of his extreme agitation related to alcohol withdrawal Patient was seen today on 04/15/2024, remains in the ICU intubated, mechanically ventilated, on assist-control rate of 18 tidal volume 500 FiO2 40% and PEEP of 5 she showed a pO2 of 94 pCO2 4 0 pH of 7.45 on D5 4 5 at 75 cc/h on Versed 6 mg/h on propofol 50 mcg/kg/min vital HP 55/55 continues to have extreme agitations on lower doses of propofol and Versed, hence I have no plans to wean and extubate at this point yet. Chest x-ray continues to show no evidence of infiltrate, WBC count is 14.1 hemoglobin is 14.1 electrolytes are normal BUN is 12 creatinine 0.60 Seen today on 04/16/2024, patient remains in the ICU, remains intubated and mechanically ventilated, he is on assist-control rate of 18 tidal volume 500 FiO2 40% PEEP of 5 ABG showed a pO2 of 80 pCO2 40 pH of 7.46. Patient has a relatively high endotracheal tube which will be advanced by 2 cm. Remains on propofol at 50 mcg/kg/min and Versed at 6 mg/h vital HP at 55/55. This morning the patient remains on sedatives, my plan again is to give the patient a trial off sedation and possibly transition to Precedex, if tolerated will proceed with weaning trials, if not we will continue the Versed and continue the propofol. In the meantime the patient is receiving the GI DVT prophylaxis also receiving enteral feeding. X-ray no evidence of active disease except the endotracheal tube needs to be advanced about 2 cm WBC count is 12.1 hemoglobin 13.2 electrolytes are normal renal profile is normal Seen today , patient remains in the ICU, intubated and mechanically ventilated still requiring significant amount of sedation including propofol and Versed. His propofol is 50 mg/kg/min his Versed is 5 mg/h today I plan to add Precedex and eventually withdrawal and taper down both Versed and propofol, and the patient remains calm on Precedex alone may consider extubation. He is on assist-control rate of 18 tidal volume 500 FiO2 40% PEEP of 5 ABG showed a pO2 of 92 pCO2 40 pH of 7.46 chest x-ray no evidence of active disease labs were reviewed WBC count is 10.5 hemoglobin 13.6 basic metabolic profile is normal renal profile is normal The patient is seen today April 18, 2024 in follow-up the intensive care unit. He was successfully extubated yesterday. He is currently awake and alert. Somewhat slow to respond. He is still requiring Precedex at 0.6 mcg/kg/h. He has D5 and half-normal saline at 70 mL/h. White count 11.0. Hemoglobin 14.3. Platelets 410. Sodium 139. Potassium 4.4. Bicarb 25. BUN 17. Creatinine 0.55. Glucose 104. Lovenox for DVT prophylaxis. NicoDerm patch in place. Objective - Vital Signs Vital signs: Vital Signs Temp 98.8 F 04/18/24 08:00 Pulse 75 04/18/24 11:00 Resp 23 04/18/24 11:00 BP 128/68 04/18/24 11:00 Pulse Ox 93 L 04/18/24 11:00 FiO2 40 04/17/24 16:00 Intake & Output 04/17/24 04/18/24 04/18/24 18:59 06:59 18:59 Intake Total 4130.940 6652.662 390.626 Output Total 1960 1125 400 Balance -84.677 -73.338 -9.374 Weight 65.5 kg Intake: IV 910 770 350 Dextrose 5%-0.45% NaCl 1, 910 770 350 000 ml @ 70 mls/hr IV . [id number] [id number] Rx#:[id number] Intake, IV Titration 305.323 281.662 40.626 Amount Dexmedetomidine/0.9% NaCl 127.929 281.662 40.626 (Pmx) 400 mcg In Empty Bag 1 bag @ 0.2 MCG/KG/HR 3.33 mls/hr IV .Q24H [facility] Rx#:[id number] Midazolam HCl 50 mg In 33.817 Sodium Chloride 0.9% 40 ml @ 1 MG/HR 1 mls/hr IV .Q24H [facility] Rx#:[id number] propofoL 1,000 mg In 143.577 Empty Bag 1 bag @ 15 MCG/ KG/MIN 5.919 mls/hr IV . [id number] [facility] Rx#:[id number] Oral 50 Tube Feeding 550 Other 60 Output: Urine 1960 1125 400 Other: Voiding Method Indwelling Catheter Indwelling Catheter Indwelling Catheter - Exam GENERAL EXAM: Awake, drowsy 58-year-old male, comfortable in no apparent distress. HEAD: Normocephalic. EYES: Normal reaction of pupils, equal size. NOSE: Clear with pink turbinates. THROAT: No erythema or exudates. NECK: No masses, no JVD. CHEST: No chest wall deformity. LUNGS: Equal air entry with few scattered rhonchi. CVS: S1 and S2 normal with no audible murmur, regular rhythm. ABDOMEN: No hepatosplenomegaly, normal bowel sounds, no guarding or rigidity. SPINE: No scoliosis or deformity SKIN: No rashes CENTRAL NERVOUS SYSTEM: No focal deficits, tone is normal in all 4 extremities. EXTREMITIES: There is no peripheral edema. No clubbing, no cyanosis. Peripheral pulses are intact. - Labs CBC & Chem 7: 04/18/24 05:14 04/18/24 05:14 Labs: Abnormal Lab Results - Last 24 Hours (Table) 04/17/24 04/17/24 04/18/24 Range/Units 17:40 23:44 05:14 WBC 11.0 H (3.8-10.6) k/uL RBC 4.12 L (4.30-5.90) m/uL MCV 108.3 H (80.0-100.0) fL Neutrophils # 8.0 H (1.3-7.7) k/uL Monocytes # 1.2 H (0-1.0) k/uL Creatinine (0.66-1.25) mg/dL Glucose (74-99) mg/dL POC Glucose (mg/dL) 174 H 123 H (70-110) mg/dL 04/18/24 04/18/24 Range/Units 05:14 12:00 WBC (3.8-10.6) k/uL RBC (4.30-5.90) m/uL MCV (80.0-100.0) fL Neutrophils # (1.3-7.7) k/uL Monocytes # (0-1.0) k/uL Creatinine 0.55 L (0.66-1.25) mg/dL Glucose 104 H (74-99) mg/dL POC Glucose (mg/dL) 140 H (70-110) mg/dL Assessment and Plan Assessment: Acute alcohol intoxication on arrival 04/10/2024 with withdrawal delirium on 04/12/2024 requiring intubation and subsequent extubation on 04/17/2024 History of alcoholism drinking approximately half a pint of liquor and 6 beers a day during the week and then goes 'unfiltered' drinking what ever he wants on weekends Previous history of cocaine and heroin abuse Chronic and ongoing tobacco dependence of 40 years Plan: The patient was seen and evaluated Labs and medications reviewed Currently stable and on 2 L/min per nasal cannula Titrate down the Precedex Utilize Haldol if needed Continue CIWA protocol with IV Ativan We will continue to follow I have personally seen and examined the patient, performed the documentation and the assessment and plan as written. Number of minutes spent on the visit: 10 Dictation was produced using [employer] dictation software. Please excuse any grammatical, word or spelling errors.
[2024-04-18 18:00] LABS: Glucose,Whole Blood 98 mg/dL (70-110)
[2024-04-19] LABS: Glucose,Whole Blood 103 mg/dL (70-110)
[2024-04-19 07:01] LABS: Glucose,Whole Blood 113 mg/dL (70-110)
--- NOTE | 2024-04-19 09:38 | P.PN ---
Subjective 58-year-old male with known history of nicotine addiction, alcohol abuse presents to ER for alcohol withdrawal symptoms. Patient states that his last drink was yesterday afternoon. Usually drinks about half a pint and 6 beers during the week and then during the weekend is on filtered and drinks what ever he wants. Patient states that he is very anxious and feels like he needs to drink but he is wanted detox and live independently. Currently lives with his mother. Patient does have a history of heroin and cocaine use 20 years ago. Patient currently does smoke on a daily basis. Patient wants to stop drinking and detox and is willing to go to rehab program. Otherwise denied any nausea or vomiting. No chest pain or shortness of breath. No complaints abdominal pain or diarrhea. Denied any fever or chills. No recent illnesses. Denied any hallucinations.Laboratory data showed WBC 6.9 hemoglobin 16.9 and platelets 383 MCV 106.5 Sodium 143 potassium 4.3 chloride 107 bicarb is 26 BUN 21 and creatinine 0.66 and blood sugar 75. AST 79 ALT 16 alk phos 67 and serum alcohol level 365. 04/16/2024 --patient remains in the ICU, remains intubated and mechanically ventilated, he is on assist-control --ABG showed a pO2 of 80 pCO2 40 pH of 7.46. --Remains on propofol at 50 mcg/kg/min and Versed at 6 mg/h vital HP at 55/55. This morning the patient remains on sedatives; intensive care service is planning to give the patient a trial off sedation and possibly transition to Precedex, if tolerated will proceed with weaning trials, if not we will continue the Versed and continue the propofol. -X-ray no evidence of active disease except the endotracheal tube needs to be advanced about 2 cm WBC count is 12.1 hemoglobin 13.2 electrolytes are normal renal profile is normal 24-hour interval change 04/17/2024 Patient is seen and evaluated in room at bedside; patient remains in the ICU, intubated and mechanically ventilated still requiring significant amount of sedation including propofol and Versed. He is on assist-control rate of 18 tidal volume 500 FiO2 40% PEEP of 5 - ABG showed a pO2 of 92 pCO2 40 pH of 7.46 chest x-ray no evidence of active disease labs were reviewed WBC count is 10.5 hemoglobin 13.6 basic metabolic profile is normal renal profile is normal Continue CIWA protocol Continue GI and DVT prophylaxis Nutritional support/enteral feeding, up to goal 04/18 Patient is s/p extubation overnight He still feels lethargic, but he can answer simple questions. He denies chest pain or dyspnea. He is generally weak. No overt withdrawal symptoms He still been weaned off Precedex and currently at 0.6 mcg/kg/h Also he is getting D5 half-normal saline at 70 mL/h Patient currently calm and sitter at bedside 04/19 Patient was moved out of the ICU to select unit today Overall he is doing better, mentation at baseline fully awake and oriented to time place person, he has insight. He denies specific complaint. No chest pain or dyspnea. No specific GI/ symptoms. He states that he is willing to stop drinking alcohol upon discharge. Currently he denies signs symptoms of depression or other mental health symptom. He denies suicidal/homicidal ideation. No hallucination. Patient however feels very weak. Patient may benefit from physical therapy evaluation. Yesterday he required 3 mg of Ativan and 5 mg of Haldol Sitter still at bedside for safety Objective - Vital Signs Vital signs: Vital Signs Temp 98.2 F 04/19/24 08:30 Pulse 87 04/19/24 08:30 Resp 14 04/19/24 08:30 BP 130/73 04/19/24 08:30 Pulse Ox 96 04/19/24 08:30 FiO2 40 04/17/24 16:00 Intake & Output 04/18/24 04/19/24 04/19/24 18:59 06:59 18:59 Intake Total 880.626 630 Output Total 800 175 Balance 80.626 455 Weight 65.5 kg 67 kg Intake: IV 840 70 Dextrose 5%-0.45% NaCl 1, 840 70 000 ml @ 70 mls/hr IV . [id number] Rx#:[id number] Intake, IV Titration 40.626 560 Amount Dexmedetomidine/0.9% NaCl 40.626 (Pmx) 400 mcg In Empty Bag 1 bag @ 0.2 MCG/KG/HR 3.33 mls/hr IV .Q24H [facility] Rx#:[id number] Dextrose 5%-0.45% NaCl 1, 560 000 ml @ 70 mls/hr IV . [id number] [id number] Rx#:[id number] Output: Urine 800 175 Other: Voiding Method Indwelling Catheter Urinal # Voids 1 2 # Bowel Movements 1 2 - Exam -GENERAL: The patient is alert and oriented x3, not in any acute distress. Well developed, well nourished. Generally weak HEENT: Pupils are round and equally reacting to light. EOMI. No scleral icterus. No conjunctival pallor. Normocephalic, atraumatic. No pharyngeal erythema. No thyromegaly. CARDIOVASCULAR: S1 and S2 present. No murmurs, rubs, or gallops. PULMONARY: Chest is clear to auscultation, no wheezing , no crackles. ABDOMEN: Soft, nontender, nondistended, normoactive bowel sounds. No palpable organomegaly. MUSCULOSKELETAL: No joint swelling or deformity. EXTREMITIES: No cyanosis, clubbing, or pedal edema. NEUROLOGICAL: Gross neurological examination did not reveal any focal deficits. SKIN: No rashes. no petechiae. - Labs CBC & Chem 7: 04/18/24 05:14 04/18/24 05:14 Labs: Abnormal Lab Results - Last 24 Hours (Table) 04/18/24 04/19/24 Range/Units 12:00 06:59 POC Glucose (mg/dL) 140 H 113 H (70-110) mg/dL Assessment and Plan Assessment: -Acute alcohol intoxication with level 365 on admission. -Severe delirium tremens, acute alcohol withdrawal symptoms including hallucinations, shakiness, restlessness, increased anxiety with increased agitation requiring mechanical ventilation. Requiring intubation and mechanical ventilation. Patient currently extubated on 04/18 -Hypokalemia, being replaced -Alcoholic hepatitis secondary to continued ongoing alcohol abuse -Macrocytosis secondary to alcohol abuse -Alcohol use disorder -Vaping Plan: Continue with weaning Precedex patient currently transferred to the general medical floor discontinue IV hydration Continue with CIWA and thiamine Pulmonary/critical care following closely Continue sitter at bedside Labs and medication were reviewed.. Continue same treatment. Continue with symptomatic treatment. Resume home medication. Monitor labs and vitals. DVT and GI prophylaxis. Further recommendations as per clinical course of the patient DVT prophylaxis: Subcutaneous heparin GI Prophylaxis: Pepcid PT/OT: P requested Prognosis is guarded
[2024-04-19 12:11] LABS: Glucose,Whole Blood 125 mg/dL (70-110)
--- NOTE | 2024-04-19 15:41 | P.PN ---
Subjective Progress Note Date: 04/19/24 Principal diagnosis: Alcohol withdrawal syndrome. This is a 58-year-old male patient with a history of ADHD, chronic and ongoing tobacco dependence, history of cocaine and heroin use in the past, heavy daily alcohol abuse who presented here on April 10, 2024 after drinking a pint of Surendra Mcclendon prior to his arrival. He typically drinks half a pint and 6 beers during the week then goes "unfiltered and drinks what ever he wants on the weekends. He lives with his mother. In the ER he stated like he felt he needed a drink but was trying not to to get where the point where he could live independently. Denies any recent drug use. His alcohol level on arrival was 365. He was placed in the CIWA protocol and admitted to the fifth floor. We are consulted today for possible ICU admission. His CIWA scale is up to 23. He was having shaking and restlessness trying to leave the floor, hallucinations. He had been given Ativan per protocol and Valium 5 mg IVP once prior to arrival. He is currently sitting up in bed. His mother is at the bedside. He is restless. He is cooperative currently. He is shaky. He is maintaining O2 saturations in the 90s on room air. He is hemodynamically stable. White count 6.9. Hemoglobin 16.9. Platelets 382. INR 1.1. Sodium 137. Potassium 4.0. Bicarb 23. BUN 15. Creatinine 0.6. Glucose 94. Urine drug screen was negative. AST 79. ALT 60. Lipase 267. He is on Lovenox for DVT prophylaxis. D5W with half-normal saline at 70 mL/h. Patient was seen today on 04/13/2024, I saw this patient yesterday and I recommended transfer to ICU because of acute delirium tremens and alcohol withdrawal. Shortly after he arrived to the ICU, patient was extremely agitated, restless, required restraints and he was not responding to Ativan and Precedex. I was notified about this patient, and I recommended intubation and placement of the patient on propofol and on Versed. Patient is now intubated he is on assist-control rate of 22 tidal volume 500 FiO2 40% and PEEP of 5 ABG showed a pO2 of 135 pCO2 29 pH of 7.53. His rate was cut down to 18. Patient is fully sedated with propofol at 35 mg/kg/min and also Versed 6 mg/h. Will try to maintain patient on 1 medication instead of both, and will likely increase propofol and discontinue Versed. Chest x-ray showed no evidence of active disease his WBC count is 11.4 hemoglobin 5.7 basic metabolic profile is normal except for relatively low potassium 3.9, renal profile is normal patient will be started on enteral feeding, he is on already GI and DVT prophylaxis. Seen today on 04/14/2024, patient remains in the ICU, intubated mechanically ventilated, assist-control rate 18 tidal volume 500 FiO2 40% PEEP of 5 ABG showed a pO2 of 86 pCO2 37 pH of 7.46, hence no changes were made in his ventilator settings. He is on propofol at 50 mcg/kg/min, however he seems to be quite agitated restless in spite of relatively good dose of propofol, hence I recommended adding Versed and titrate accordingly chest x-ray no evidence of active disease. Labs today are unremarkable including CBC and basic metabolic profile potassium is a bit low being addressed accordinglyRenal profile is normal. Patient remains on nutritional support, GI and DVT prophylaxis, and obviously is not quite ready to be weaned because of his extreme agitation related to alcohol withdrawal Patient was seen today on 04/15/2024, remains in the ICU intubated, mechanically ventilated, on assist-control rate of 18 tidal volume 500 FiO2 40% and PEEP of 5 she showed a pO2 of 94 pCO2 4 0 pH of 7.45 on D5 4 5 at 75 cc/h on Versed 6 mg/h on propofol 50 mcg/kg/min vital HP 55/55 continues to have extreme agitations on lower doses of propofol and Versed, hence I have no plans to wean and extubate at this point yet. Chest x-ray continues to show no evidence of infiltrate, WBC count is 14.1 hemoglobin is 14.1 electrolytes are normal BUN is 12 creatinine 0.60 Seen today on 04/16/2024, patient remains in the ICU, remains intubated and mechanically ventilated, he is on assist-control rate of 18 tidal volume 500 FiO2 40% PEEP of 5 ABG showed a pO2 of 80 pCO2 40 pH of 7.46. Patient has a relatively high endotracheal tube which will be advanced by 2 cm. Remains on propofol at 50 mcg/kg/min and Versed at 6 mg/h vital HP at 55/55. This morning the patient remains on sedatives, my plan again is to give the patient a trial off sedation and possibly transition to Precedex, if tolerated will proceed with weaning trials, if not we will continue the Versed and continue the propofol. In the meantime the patient is receiving the GI DVT prophylaxis also receiving enteral feeding. X-ray no evidence of active disease except the endotracheal tube needs to be advanced about 2 cm WBC count is 12.1 hemoglobin 13.2 electrolytes are normal renal profile is normal Seen today on, patient remains in the ICU, intubated and mechanically ventilated still requiring significant amount of sedation including propofol and Versed. His propofol is 50 mg/kg/min his Versed is 5 mg/h today I plan to add Precedex and eventually withdrawal and taper down both Versed and propofol, and the patient remains calm on Precedex alone may consider extubation. He is on assist-control rate of 18 tidal volume 500 FiO2 40% PEEP of 5 ABG showed a pO2 of 92 pCO2 40 pH of 7.46 chest x-ray no evidence of active disease labs were reviewed WBC count is 10.5 hemoglobin 13.6 basic metabolic profile is normal renal profile is normal The patient is seen today April 18, 2024 in follow-up the intensive care unit. He was successfully extubated yesterday. He is currently awake and alert. Somewhat slow to respond. He is still requiring Precedex at 0.6 mcg/kg/h. He has D5 and half-normal saline at 70 mL/h. White count 11.0. Hemoglobin 14.3. Platelets 410. Sodium 139. Potassium 4.4. Bicarb 25. BUN 17. Creatinine 0.55. Glucose 104. Lovenox for DVT prophylaxis. NicoDerm patch in place. Progress note dated April 19, 2024. The patient is seen today in room 379. The patient is resting comfortably in be d without any distress, agitation, etc. He is not manifesting any signs or symptoms of severe alcohol withdrawal syndrome. He is on room air. He is getting dextrose with half-normal saline at 70 cc an hour. There is a sitter in the room. No new labs today other than a glucose of 125. Objective - Vital Signs Vital signs: Vital Signs Temp 98.2 F 04/19/24 15:18 Pulse 97 04/19/24 15:18 Resp 14 04/19/24 15:18 BP 145/75 12/10/24 15:18 Pulse Ox 95 04/19/24 15:18 FiO2 40 04/17/24 16:00 Intake & Output 04/18/24 04/19/24 04/19/24 18:59 06:59 18:59 Intake Total 880.626 630 Output Total 800 175 Balance 80.626 455 Weight 65.5 kg 67 kg Intake: IV 840 70 Dextrose 5%-0.45% NaCl 1, 840 70 000 ml @ 70 mls/hr IV . [id number] Rx#:[id number] Intake, IV Titration 40.626 560 Amount Dexmedetomidine/0.9% NaCl 40.626 (Pmx) 400 mcg In Empty Bag 1 bag @ 0.2 MCG/KG/HR 3.33 mls/hr IV .Q24H [facility] Rx#:[id number] Dextrose 5%-0.45% NaCl 1, 560 000 ml @ 70 mls/hr IV . [id number] [facility] Rx#:[id number] Output: Urine 800 175 Other: Voiding Method Indwelling Catheter Urinal Urinal # Voids 1 2 2 # Bowel Movements 1 2 2 - Exam No acute distress, oriented 3. The patient is on room air. HEENT examination is grossly unremarkable. Mucous membranes are moist. No oral lesions. Neck supple. Full range of motion. No adenopathy thyromegaly or neck vein distention. Cardiovascular examination reveals regular rhythm rate. S1-S2 normal. No S3 or S4. No discernible murmur noted. Lungs reveal mostly clear breath sounds. Minimal rhonchi. No wheezes or crackles. Abdomen soft bowel sounds are heard. No masses or tenderness. Extremities are intact. No cyanosis clubbing or edema. Skin is without rash or lesion. Neurologic examination is brief but nonfocal. - Labs CBC & Chem 7: 04/18/24 05:14 04/18/24 05:14 Labs: Abnormal Lab Results - Last 24 Hours (Table) 04/19/24 04/19/24 Range/Units 06:59 12:05 POC Glucose (mg/dL) 113 H 125 H (70-110) mg/dL Assessment and Plan Assessment: Acute alcohol intoxication on arrival 04/10/2024 with withdrawal delirium on 04/12/2024 requiring intubation and subsequent extubation on 04/17/2024. History of alcoholism drinking approximately half a pint of liquor and 6 beers a day during the week and then goes 'unfiltered' drinking what ever he wants on the weekends. Previous history of cocaine and heroin abuse. Chronic and ongoing tobacco dependence of 40 years. Plan: Plan dated April 19, 2024. The patient was stable to be transferred out of the intensive care unit. The patient is seen on the general medical floor, room 379. The patient remains on room air. The patient is getting dextrose with half-normal saline at 70 cc an hour. The patient sleeping, and not demonstrating any signs or symptoms of acute alcohol withdrawal syndrome. The patient is not agitated. The patient continues on the CIWA protocol. The patient also has Haldol ordered if needed. Previously in the ICU, the patient was on dexmedetomidine. Labs, x-rays, and medications are reviewed. Prognosis is guarded. Time with Patient: Less than 30
[2024-04-19 16:50] LABS: Glucose,Whole Blood 152 mg/dL (70-110)
[2024-04-19 20:27] LABS: Glucose,Whole Blood 94 mg/dL (70-110)
[2024-04-20 06:18] LABS: Glucose,Whole Blood 100 mg/dL (70-110)
[2024-04-20 08:49] VITALS: RESP 14
[2024-04-20 10:33] LABS: Basophils # (A) 0.1 k/uL (0-0.2); Basophils % (A) 1 %; Eosinophils # (A) 0.3 k/uL (0-0.7); Eosinophils % (A) 3 %; HCT 44.2 % (39.0-53.0); HGB 14.5 gm/dL (13.0-17.5); Lymphocytes # (A) 1.4 k/uL (1.0-4.8); Lymphocytes % (A) 15 %; MCH 34.8 pg (25.0-35.0); MCHC 32.8 g/dL (31.0-37.0); Macrocytosis Slight; Monocytes # (A) 0.7 k/uL (0-1.0); Monocytes % (A) 8 %; Neutrophils # (A) 6.1 k/uL (1.3-7.7); Neutrophils % (A) 68 %; Platelet Count 679 k/uL (150-450); RBC 4.17 m/uL (4.30-5.90); RDW 12.5 % (11.5-15.5); WBC 8.9 k/uL (3.8-10.6)
[2024-04-20 10:47] LABS: African American GFR (CKD) >90 (>60 ml/min/1.73 sqM); Anion Gap 6 mmol/L; Blood Urea Nitrogen 22 mg/dL (9-20); Calcium 9.5 mg/dL (8.4-10.2); Carbon Dioxide 28 mmol/L (22-30); Chloride 106 mmol/L (98-107); Glucose 98 mg/dL (74-99); Non-African American GFR(CKD) >90 (>60 ml/min/1.73 sqM); Potassium 4.1 mmol/L (3.5-5.1); Sodium 140 mmol/L (137-145)
[2024-04-20 11:14] VITALS: BP 127/73; PULSE 89; TEMP 97.5
[2024-04-20 12:04] LABS: Glucose,Whole Blood 106 mg/dL (70-110)
[2024-04-20 14:30] VITALS: BMI 20.2
--- NOTE | 2024-04-20 16:15 | P.PN ---
Subjective Progress Note Date: 04/20/24 This is a 58-year-old male patient with a history of ADHD, chronic and ongoing tobacco dependence, history of cocaine and heroin use in the past, heavy daily alcohol abuse who presented here on April 10, 2024 after drinking a pint of Surendra Mcclendon prior to his arrival. He typically drinks half a pint and 6 beers during the week then goes "unfiltered and drinks what ever he wants on the weekends. He lives with his mother. In the ER he stated like he felt he needed a drink but was trying not to to get where the point where he could live independently. Denies any recent drug use. His alcohol level on arrival was 365. He was placed in the CIWA protocol and admitted to the fifth floor. We are consulted today for possible ICU admission. His CIWA scale is up to 23. He was having shaking and restlessness trying to leave the floor, hallucinations. He had been given Ativan per protocol and Valium 5 mg IVP once prior to arrival. He is currently sitting up in bed. His mother is at the bedside. He is restless. He is cooperative currently. He is shaky. He is maintaining O2 saturations in the 90s on room air. He is hemodynamically stable. White count 6.9. Hemoglobin 16.9. Platelets 382. INR 1.1. Sodium 137. Potassium 4.0. Bicarb 23. BUN 15. Creatinine 0.6. Glucose 94. Urine drug screen was negative. AST 79. ALT 60. Lipase 267. He is on Lovenox for DVT prophylaxis. D5W with half-normal saline at 70 mL/h. Patient was seen today on 04/13/2024, I saw this patient yesterday and I recommended transfer to ICU because of acute delirium tremens and alcohol withdrawal. Shortly after he arrived to the ICU, patient was extremely agitated, restless, required restraints and he was not responding to Ativan and Precedex. I was notified about this patient, and I recommended intubation and placement of the patient on propofol and on Versed. Patient is now intubated he is on assist-control rate of 22 tidal volume 500 FiO2 40% and PEEP of 5 ABG showed a pO2 of 135 pCO2 29 pH of 7.53. His rate was cut down to 18. Patient is fully sedated with propofol at 35 mg/kg/min and also Versed 6 mg/h. Will try to maintain patient on 1 medication instead of both, and will likely increase propofol and discontinue Versed. Chest x-ray showed no evidence of active disease his WBC count is 11.4 hemoglobin 5.7 basic metabolic profile is normal except for relatively low potassium 3.9, renal profile is normal patient will be started on enteral feeding, he is on already GI and DVT prophylaxis. Seen today on 04/14/2024, patient remains in the ICU, intubated mechanically ventilated, assist-control rate 18 tidal volume 500 FiO2 40% PEEP of 5 ABG showed a pO2 of 86 pCO2 37 pH of 7.46, hence no changes were made in his ventilator settings. He is on propofol at 50 mcg/kg/min, however he seems to be quite agitated restless in spite of relatively good dose of propofol, hence I recommended adding Versed and titrate accordingly chest x-ray no evidence of active disease. Labs today are unremarkable including CBC and basic metabolic profile potassium is a bit low being addressed accordinglyRenal profile is normal. Patient remains on nutritional support, GI and DVT prophylaxis, and obviously is not quite ready to be weaned because of his extreme agitation related to alcohol withdrawal Patient was seen today on 04/15/2024, remains in the ICU intubated, mechanically ventilated, on assist-control rate of 18 tidal volume 500 FiO2 40% and PEEP of 5 she showed a pO2 of 94 pCO2 4 0 pH of 7.45 on D5 4 5 at 75 cc/h on Versed 6 mg/h on propofol 50 mcg/kg/min vital HP 55/55 continues to have extreme agitations on lower doses of propofol and Versed, hence I have no plans to wean and extubate at this point yet. Chest x-ray continues to show no evidence of infiltrate, WBC count is 14.1 hemoglobin is 14.1 electrolytes are normal BUN is 12 creatinine 0.60 Seen today on 04/16/2024, patient remains in the ICU, remains intubated and mechanically ventilated, he is on assist-control rate of 18 tidal volume 500 FiO2 40% PEEP of 5 ABG showed a pO2 of 80 pCO2 40 pH of 7.46. Patient has a relatively high endotracheal tube which will be advanced by 2 cm. Remains on propofol at 50 mcg/kg/min and Versed at 6 mg/h vital HP at 55/55. This morning the patient remains on sedatives, my plan again is to give the patient a trial off sedation and possibly transition to Precedex, if tolerated will proceed with weaning trials, if not we will continue the Versed and continue the propofol. In the meantime the patient is receiving the GI DVT prophylaxis also receiving enteral feeding. X-ray no evidence of active disease except the endotracheal tube needs to be advanced about 2 cm WBC count is 12.1 hemoglobin 13.2 electrolytes are normal renal profile is normal Seen today , patient remains in the ICU, intubated and mechanically ventilated still requiring significant amount of sedation including propofol and Versed. His propofol is 50 mg/kg/min his Versed is 5 mg/h today I plan to add Precedex and eventually withdrawal and taper down both Versed and propofol, and the patient remains calm on Precedex alone may consider extubation. He is on assist-control rate of 18 tidal volume 500 FiO2 40% PEEP of 5 ABG showed a pO2 of 92 pCO2 40 pH of 7.46 chest x-ray no evidence of active disease labs were reviewed WBC count is 10.5 hemoglobin 13.6 basic metabolic profile is normal renal profile is normal The patient is seen today April 18, 2024 in follow-up the intensive care unit. He was successfully extubated yesterday. He is currently awake and alert. Somewhat slow to respond. He is still requiring Precedex at 0.6 mcg/kg/h. He has D5 and half-normal saline at 70 mL/h. White count 11.0. Hemoglobin 14.3. Platelets 410. Sodium 139. Potassium 4.4. Bicarb 25. BUN 17. Creatinine 0.55. Glucose 104. Lovenox for DVT prophylaxis. NicoDerm patch in place. The patient is seen today April 20, 2024 in follow-up on the selective care unit. He was transferred out of the intensive care unit. He is awake and alert in no acute distress. He is maintaining O2 saturations in the 90s on room air. He is afebrile. Hemodynamically stable. He has been calm and cooperative. White count 8.9. Hemoglobin 14.5. Platelets 679. Sodium 140. Potassium 4.1. Bicarb 28. BUN 22. Creatinine 0.67. Glucose 98. He is on Lovenox for DVT prophylaxis. Remains on the CITX protocol. NicoDerm patch in place. Objective - Vital Signs Vital signs: Vital Signs Temp 97.5 F L 04/20/24 11:12 Pulse 89 04/20/24 11:12 Resp 14 04/20/24 11:12 BP 127/73 04/20/24 11:12 Pulse Ox 94 L 04/20/24 11:12 FiO2 40 04/17/24 16:00 Intake & Output 04/19/24 04/20/24 04/20/24 18:59 06:59 18:59 Intake Total 118 Balance 118 Weight 58.6 kg 58.6 kg Intake: Oral 118 Other: Voiding Method Urinal Urinal Toilet # Voids 1 2 # Bowel Movements 2 - Exam GENERAL EXAM: Awake, alert 58-year-old male, on room air, comfortable in no apparent distress. HEAD: Normocephalic. EYES: Normal reaction of pupils, equal size. NOSE: Clear with pink turbinates. THROAT: No erythema or exudates. NECK: No masses, no JVD. CHEST: No chest wall deformity. LUNGS: Equal air entry with few scattered rhonchi. CVS: S1 and S2 normal with no audible murmur, regular rhythm. ABDOMEN: No hepatosplenomegaly, normal bowel sounds, no guarding or rigidity. SPINE: No scoliosis or deformity SKIN: No rashes CENTRAL NERVOUS SYSTEM: No focal deficits, tone is normal in all 4 extremities. EXTREMITIES: There is no peripheral edema. No clubbing, no cyanosis. Peripheral pulses are intact. - Labs CBC & Chem 7: 04/20/24 10:10 04/20/24 10:10 Labs: Abnormal Lab Results - Last 24 Hours (Table) 04/19/24 04/20/24 04/20/24 Range/Units 16:48 10:10 10:10 RBC 4.17 L (4.30-5.90) m/uL MCV 106.0 H (80.0-100.0) fL Plt Count 679 H (150-450) k/uL BUN 22 H (9-20) mg/dL POC Glucose (mg/dL) 152 H (70-110) mg/dL Assessment and Plan Assessment: Acute alcohol intoxication on arrival 04/10/2024 with withdrawal delirium on 04/12/2024 requiring intubation and subsequent extubation on 04/17/2024. Gómez demetrio and on room air History of alcoholism drinking approximately half a pint of liquor and 6 beers a day during the week and then goes 'unfiltered' drinking what ever he wants on the weekends Previous history of cocaine and heroin abuse Chronic and ongoing tobacco dependence of 40 years Plan: The patient was seen and evaluated Labs and medications reviewed Currently stable and on room air Educated regarding alcohol cessation Educated regarding smoking cessation Cleared for discharge from the pulmonary standpoint The patient does have an appointment at [facility] tomorrow I have personally seen and examined the patient, performed the documentation and the assessment and plan as written. Number of minutes spent on the visit: 10 Dictation was produced using [employer] dictation software. Please excuse any grammatical, word or spelling errors.
--- NOTE | 2024-04-20 23:08 | P.DS ---
Providers Date of admission: 04/10/24 23:31 Attending physician: Higinio Hernandez MD Consults: 04/12/24 15:18 Consult Physician Urgent Consulting Provider: Margarita Philippe Consult Reason/Comments: etoh, active withdrawal Do you want consulting provider notified?: Yes Primary care physician: Stated None Hospital Course: Diagnoses: -Acute alcohol intoxication with level 365 on admission. -Severe delirium tremens, acute alcohol withdrawal symptoms including hallucinations, shakiness, restlessness, increased anxiety with increased agitation requiring intubation and mechanical ventilation. Patient currently extubated on 04/18 -Hypokalemia, being replaced -Alcoholic h transaminitis secondary to continued ongoing alcohol abuse -Macrocytosis secondary to alcohol abuse -Alcohol use disorder -Vaping Hospital course: 58-year-old male with known history of nicotine addiction, alcohol abuse presents to ER for alcohol withdrawal symptoms. Patient states that his last drink was yest 1 day prior to admission Patient underwent severe alcohol withdrawal symptoms and during which remains it was hard to control even after he went to the ICU. Eventually patient has to be intubated and placed on mechanical ventilation. After control of his withdrawal symptoms with Precedex he got extubated and Precedex was weaned down. Patient tolerated that well. He was transferred to the general medical floor about 2 to 3 days ago. He kept doing well. Mentation at baseline, he is calm no withdrawal symptoms. He did not need Ativan lately as per bedside He denies any chest pain dyspnea. No any other new complaints. Patient looks motivated to quit drinking alcohol and he told me he intends to follow-up with [facility] tomorrow. But today he will go to his sister house staff explained. Patient agreeable to be discharged home today Patient was cleared for discharge by police district switchboard operator Problems and management plan were discussed with the patient and he verbalized understanding and acceptance Patient was found stable and can be discharged home in guarded prognosis however he needs follow-up as an outpatient. Patient was instructed to follow up with PCP within one week and patient agrees Patient instructed to follow-up with Dr. Gleason in 2 weeks Physical exam Gen: patient is a AAOx3, no distress CVS: S1-S2, RRR, no murmur Lungs: B/L CTA, no wheezing Abdomen: soft, no distention, no tenderness, positive bowel sounds Extremity: no leg edema or induration Time spent more than 35 minutes Patient Condition at Discharge: Good Plan - Discharge Summary Discharge Rx Participant: No New Discharge Prescriptions: New Folic Acid 1 mg PO DAILY #30 tab Nicotine 14Mg/24Hr Patch [Habitrol] 1 patch TRANSDERM DAILY 3 Days #3 patch Multivitamins, Thera [Multivitamin (formulary)] 1 each PO DAILY #30 tab Acetaminophen Tab [Tylenol] 650 mg PO Q6HR PRN tab PRN Reason: Mild Pain Or Fever > 100.5 Thiamine [Vitamin B-1] 100 mg PO DAILY #30 tab Discharge Medication List Acetaminophen Tab [Tylenol] 650 mg PO Q6HR PRN tab 04/20/24 [Rx] Folic Acid 1 mg PO DAILY #30 tab 04/20/24 [Rx] Multivitamins, Thera [Multivitamin (formulary)] 1 each PO DAILY #30 tab 04/20/24 [Rx] Nicotine 14Mg/24Hr Patch [Habitrol] 1 patch TRANSDERM DAILY 3 Days #3 patch 04/20/24 [Rx] Thiamine [Vitamin B-1] 100 mg PO DAILY #30 tab 04/20/24 [Rx] Follow up Appointment(s)/Referral(s): Margarita Philippe MD [STAFF PHYSICIAN] - 1 Week (Patient to consult with [facility] for appointment ) None,Stated [Primary Care Provider] - 1-2 days (Patient to find PCP and arrange appointment ) Patient Instructions/Handouts: Abuse of Alcohol (DC) Activity/Diet/Wound Care/Special Instructions: heart healthy diet activity is restricted till you see your doctor we recommend to follow up with [facility] tomorrow as you planned to Discharge/Stand Alone Forms: AA Meetings [place], Outpatient Counseling, Inp Substance Abuse Facilities Discharge Disposition: HOME SELF-CARE
== END 2024-04-20 15:00 | disposition home or self-care (01) | DRG 897 ==
LOC: EC 19:15 → 5NMEDONC 23:30 → OBSVTOIN 23:31 → 5NMEDONC 04-11 06:06 → 2SICU 04-12 18:06 → 3SCARD 04-18 20:40
PROVIDERS: ADMIT Internal Medicine; ATTEND Internal Medicine
PROC: 0BH17EZ Insertion of Endotracheal Airway into Trachea, Via Natural or Artificial Opening (ICD-10-PCS; principal; 2024-04-13)
PROC: 5A1945Z Respiratory Ventilation, 24-96 Consecutive Hours (ICD-10-PCS; 2024-04-13)
PROC: 3E0G76Z Introduction of Nutritional Substance into Upper GI, Via Natural or Artificial Opening (ICD-10-PCS; 2024-04-13)
DX: F10.229 Alcohol dependence with intoxication, unspecified (principal); F11.11 Opioid abuse, in remission; F10.231 Alcohol dependence with withdrawal delirium; Z78.1 Physical restraint status; K70.10 Alcoholic hepatitis without ascites; F14.11 Cocaine abuse, in remission; F17.210 Nicotine dependence, cigarettes, uncomplicated; F41.9 Anxiety disorder, unspecified; D75.89 Other specified diseases of blood and blood-forming organs; F17.290 Nicotine dependence, other tobacco product, uncomplicated; E87.6 Hypokalemia; Y90.8 Blood alcohol level of 240 mg/100 ml or more
CPT/HCPCS: 36415; 36600; 71045; 80048; 80053; 80306; 80320; 82805; 83690; 83735; 84100; 84132; 84145; 85025; 85027; 85610; 94002; 94003; 94760; 96361; 96372; 96374; 99285